=== PATIENT | male | born 1935 | race Caucasian/White ===

== ENCOUNTER 2016-12-24 12:57 | Emergency (ER) | payer OTHER, MEDICARE ==
[2016-12-24 13:29] VITALS: BP 135/87
[2016-12-24] MEDS ORDERED: Lidocaine 1% with EPINEPHrine 1:100,000 50 ML MDV INFILT ONE (13:52)
--- NOTE | 2016-12-24 13:56 | EDM.PDOC ---
[id number]: PASSED OUT FELL Time Seen by Provider: 12/24/16 13:35 Source of Information: Reports: Patient, Family History Limitations: Reports: No Limitations - History of Present Illness INITIAL COMMENTS - FREE TEXT/NARRATIVE: 81-year-old male with a history of sudden syncope had another episode today while standing and working at [employer]. He felt lightheaded and woozy and reached out to steady himself but then passed out. He had diarrhea yesterday but was feeling fine this morning. He had no palpitations or shortness of breath. The next thing he knew there were people standing around him and he had a cut on his head. He now feels fine. He refused an ambulance. Onset: Sudden Location: Reports: Head Severity: Mild Associated Symptoms: Reports: Other (Had been feeling fine up until the syncopal episode.) - Related Data Allergies Allergy/AdvReac Type Severity Reaction Status Date / Time No Known Allergies Allergy Verified 12/24/16 13:33 Home Meds: Home Meds Aspirin 325 mg PO DAILY 12/24/16 [History] Multivitamin [Multi-Vitamin Daily] 1 each PO DAILY 12/24/16 [History] [place]-3S/DHA/Epa/Fish Oil [[place]-3 Fish Oil 1,000 mg Sfgl] 1 each PO DAILY 12/24 [History] Terazosin HCl [Terazosin] 10 mg PO BEDTIME 12/24/16 [History] levETIRAcetam [Levetiracetam] 500 mg PO BID 12/24/16 [History] Past Medical History HEENT History: Reports: Cataract, Hard of Hearing Other HEENT History: hearing aids Other Respiratory History: A 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 Musculoskeletal History: Reports: Fracture Neurological History: Reports: Seizure Oncologic (Cancer) History: Reports: Prostate - Infectious Disease History Infectious Disease History: Reports: Chicken Pox, Mumps - Past Surgical History HEENT Surgical History: Reports: Cataract Surgery Other HEENT Surgeries/Procedures: Left eye Musculoskeletal Surgical History: Reports: Arthroscopic Knee Social & Family History - Tobacco Use Smoking Status *Q: Never Smoker - Caffeine Use Caffeine Use: Reports: Coffee - Recreational Drug Use Recreational Drug Use: No ED ROS GENERAL - Review of Systems Review Of Systems: See Below Constitutional: Denies: Fever, Chills Respiratory: Denies: Shortness of Breath Cardiovascular: Denies: Chest Pain, Palpitations GI/Abdominal: Reports: Diarrhea (Yesterday) Musculoskeletal: Reports: No Symptoms Neurological: Denies: Headache ED EXAM, GENERAL - Physical Exam Exam: See Below Exam Limited By: No Limitations General Appearance: Alert, No Apparent Distress Eye Exam: Bilateral Eye: Normal Inspection Ears: Other (Hearing aids bilaterally) Head: Other (Patient has a stellate laceration on the left occipital scalp, total measurement is 4 cm) Respiratory/Chest: No Respiratory Distress Cardiovascular: Regular Rate, Rhythm GI/Abdominal: Non-Tender Extremities: No: Pedal Edema Neurological: Alert, Oriented Psychiatric: Normal Affect, Normal Mood Course - Vital Signs Last Recorded V/S: Last Vital Signs Temp 97.7 F 12/24/16 13:32 Pulse 58 L 12/24/16 13:32 Resp 16 12/24/16 13:32 BP 135/87 12/24/16 13:32 Pulse Ox 93 L 12/24/16 13:32 - Orders/Labs/Meds Orders: Active Orders 24 hr Category Date Time Status Vaccines to be Administered [RC] PER UNIT ROUTINE Care 12/24/16 14:21 Active Meds: Medications Discontinued Medications Generic Name Dose Route Start Last Admin Trade Name Yoana PRN Reason Stop Dose Admin Bacitracin 1 dose 12/24/16 14:25 12/24/16 14:31 Bacitracin Oint 1 Gm TOP 12/24/16 14:26 1 dose ONETIME ONE Administration Diphtheria/Tetanus/Acell Pertussis 0.5 ml 12/24/16 14:21 12/24/16 14:27 Adacel IM 12/24/16 14:22 0.5 ml .ONCE ONE Administration Lidocaine/Epinephrine 30 ml 12/24/16 13:52 12/24/16 14:00 Xylocaine 1% With Epinephrine 1:100,000 INFILT 12/24/16 13:53 2 ml ONETIME ONE Administration - Re-Assessments/Exams Free Text/Narrative Re-Assessment/Exam: 12/24/16 14:20 Lidocaine with epinephrine was infiltrated into the laceration and 7 4-0 Ethilon sutures are used to close. The edges approximated well. Patient then ambulated and felt no other sore areas or symptoms. He was given tetanus, topical bacitracin and the sutures can be removed in 8 days. Departure - Departure Time of Disposition: 15:01 Disposition: Home, Self-Care 01 Condition: good Clinical Impression: Syncope, vasovagal Laceration of scalp Qualifiers: Encounter type: initial encounter Qualified Code(s): S01.01XA - Laceration without foreign body of scalp, initial encounter Instructions: Near-Syncope, [id number], VIS, Diphtheria, Tetanus, and Pertussis (DTaP) - CDC, Laceration Care, Adult, [id number] Referrals: Alphonso Mays MD [Primary Care Provider] - Forms: ED Department Discharge Care Plan Goals: Stay home and rest for the next 48 hours, increasing your activity as tolerated. Keep wound clean and covered while healing, sutures can be removed in 8 days. Recheck sooner if concerns of infection or not healing satisfactorily. - My Orders Last 24 Hours: My Active Orders 12/24/16 14:21 Vaccines to be Administered [RC] PER UNIT ROUTINE - Assessment/Plan Last 24 Hours: My Active Orders 12/24/16 14:21 Vaccines to be Administered [RC] PER UNIT ROUTINE
[2016-12-24] MEDS ORDERED: Diphtheria,Pertussis(Acell),Tetanus Vaccine 0.5 ML SDV IM ONE (14:21)
[2016-12-24] MEDS ORDERED: Bacitracin Oint 1 GM U/D Packet TOP ONE (14:25)
== END 2016-12-24 15:01 | disposition home or self-care (01) ==
LOC: JP.ED 12:57
DX: R55 Syncope and collapse (principal); S01.01XA Laceration without foreign body of scalp, initial encounter; Z85.46 Personal history of malignant neoplasm of prostate; Z98.49 Cataract extraction status, unspecified eye; Z98.890 Other specified postprocedural states; Z79.82 Long term (current) use of aspirin; Z79.899 Other long term (current) drug therapy
CPT/HCPCS: 12002; 90471; 90715; 99282-25; 99284-25

== ENCOUNTER 2017-01-23 16:31 | Emergency (ER) | payer OTHER, MEDICARE ==
[2017-01-23] MEDS ORDERED: Sodium Chloride 0.9% 10 ML Syringe FLUSH PRN (16:40)
[2017-01-23] MEDS ORDERED: Adenosine 6 MG/2 ML SDV IVPUSH ONE (16:42)
[2017-01-23] MEDS ORDERED: Sodium Chloride 0.9% 1,000 ML IV SCH (16:45)
[2017-01-23] MEDS ORDERED: Adenosine 6 MG/2 ML SDV ONE (16:59)
--- NOTE | 2017-01-23 17:58 | EDM.PDOC ---
ED HPI GENERAL MEDICAL PROBLEM - General Chief Complaint: Cardiovascular Problem Stated Complaint: HEART Time Seen by Provider: 01/23/17 17:12 Source of Information: Reports: Patient, Family, RN Notes Reviewed History Limitations: Reports: No Limitations - History of Present Illness INITIAL COMMENTS - FREE TEXT/NARRATIVE: 81-year-old gentleman presents emergency department day complaint of chest pressure and palpitations, he states it started earlier today approximately 5 hours prior to presentation to the ED he describes it more as a heartburn feeling did not interfere with his work he was able to complete his shift at [facility] [employer]. He denies any shortness of breath no nausea vomiting no diaphoresis he has no cardiac history no diabetes no hypertension no use of tobacco products - Related Data Allergies Allergy/AdvReac Type Severity Reaction Status Date / Time No Known Allergies Allergy Verified 01/23/17 17:06 Home Meds: Home Meds Multivitamin [Multi-Vitamin Daily] 1 each PO DAILY 12/24/16 [History] [place]-3S/DHA/Epa/Fish Oil [[place]-3 Fish Oil 1,000 mg Sfgl] 1 each PO DAILY 12/24 [History] Terazosin HCl [Terazosin] 10 mg PO BEDTIME 12/24/16 [History] levETIRAcetam [Levetiracetam] 500 mg PO BID 12/24/16 [History] Aspirin 1 tab PO DAILY 01/23/17 [History] Metoprolol Tartrate 12.5 mg PO BID #30 tablet 01/23/17 [Rx] Past Medical History HEENT History: Reports: Cataract, Hard of Hearing Other HEENT History: hearing aids Other Respiratory History: A 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 Musculoskeletal History: Reports: Fracture Neurological History: Reports: Seizure Oncologic (Cancer) History: Reports: Prostate - Infectious Disease History Infectious Disease History: Reports: Chicken Pox, Mumps - Past Surgical History HEENT Surgical History: Reports: Cataract Surgery Other HEENT Surgeries/Procedures: Left eye Musculoskeletal Surgical History: Reports: Arthroscopic Knee Social & Family History - Family History Cardiac: Reports: Heart Failure (Sister), Other (See Below) (Sister history of SVT status post ablation) - Tobacco Use Smoking Status *Q: Never Smoker - Caffeine Use Caffeine Use: Reports: Coffee - Recreational Drug Use Recreational Drug Use: No ED ROS GENERAL - Review of Systems Review Of Systems: See Below Constitutional: Reports: No Symptoms HEENT: Reports: No Symptoms Respiratory: Reports: No Symptoms Cardiovascular: Reports: Chest Pain GI/Abdominal: Reports: No Symptoms : Reports: No Symptoms ED EXAM, GENERAL - Physical Exam Exam: See Below Free Text/Narrative:: Initial presentation showed heart rate of around 170, airway was open patent and clear cardiovascular demonstrates a tachycardic rhythm S1 and S2 and lungs were clear to auscultation, he was moved to the trauma bay at which time 2 IVs were placed attempted carotid massage which was unsuccessful. Next attempted a Valsalva maneuver through a straw which provided a brief heart rate is around 60 but then returned to the 170s. He was given 6 mg of adenosine which converted him to a sinus rhythm in the 70s at the time of conversion became asymptomatic Exam Limited By: No Limitations General Appearance: Alert, WD/WN, No Apparent Distress Head: Atraumatic, Normocephalic Neck: Normal Inspection, Supple, Non-Tender, Full Range of Motion Respiratory/Chest: No Respiratory Distress, Lungs Clear, Normal Breath Sounds, No Accessory Muscle Use Cardiovascular: Regular Rate, Rhythm, No Murmur Course - Vital Signs Last Recorded V/S: Last Vital Signs Temp 98.8 F 01/23/17 17:00 Pulse 69 01/23/17 17:25 Resp 20 01/23/17 17:00 BP 121/78 01/23/17 17:25 Pulse Ox 92 L 01/23/17 17:25 - Orders/Labs/Meds Orders: Active Orders 24 hr Category Date Time Status EKG Documentation Completion [RC] ASDIRECTED Care 01/23/17 16:41 Active Chest 1V Frontal [CR] Stat Exams 01/23/17 16:41 Taken Sodium Chloride 0.9% [Normal Saline] 1,000 ml Med 01/23/17 16:45 Active IV ASDIRECTED Sodium Chloride 0.9% [Saline Flush] Med 01/23/17 16:40 Active 10 ml FLUSH ASDIRECTED PRN Saline Lock Insert [OM.PC] Routine Oth 01/23/17 16:40 Ordered EKG 12 Lead [EK] Routine Ther 01/23/17 16:40 Ordered Medication Orders Sodium Chloride (Normal Saline) 1,000 mls @ 250 mls/hr IV ASDIRECTED DANIELA Last Admin: 01/23/17 16:50 Dose: 250 mls/hr Sodium Chloride (Saline Flush) 10 ml FLUSH ASDIRECTED PRN PRN Reason: Keep Vein Open Last Admin: 01/23/17 17:17 Dose: 10 ml Labs: Laboratory Tests 01/23/17 01/23/17 01/23/17 Range/Units 16:54 16:54 17:41 WBC 10.7 (4.5-11.0) K/uL RBC 4.32 (4.30-5.90) M/uL Hgb 13.4 (12.0-15.0) g/dL Hct 41.2 (40.0-54.0) % MCV 95 (80-98) fL MCH 31 (27-31) pg MCHC 33 (32-36) % Plt Count 298 (150-400) K/uL Neut % (Auto) 61 (36-66) % Lymph % (Auto) 21 L (24-44) % [place] % (Auto) 13 H (2-6) % Eos % (Auto) 4 (2-4) % Baso % (Auto) 0 (0-1) % Sodium 139 L (140-148) mmol/L Potassium 4.3 (3.6-5.2) mmol/L Chloride 104 (100-108) mmol/L Carbon Dioxide 25 (21-32) mmol/L Anion Gap 14.3 H (5.0-14.0) mmol/L BUN 19 H (7-18) mg/dL Creatinine 1.2 (0.8-1.3) mg/dL Est Cr Clr Drug Dosing 48.30 mL/min Estimated GFR (MDRD) 58 L (>60) Glucose 108 H (74-106) mg/dL Calcium 8.8 (8.5-10.1) mg/dL Total Bilirubin 0.2 (0.2-1.0) mg/dL AST 20 (15-37) U/L ALT 7 L (12-78) U/L Alkaline Phosphatase 123 H (46-116) U/L Troponin I < 0.017 (0.000-0.056) ng/mL Total Protein 7.3 (6.4-8.2) g/dL Albumin 3.4 (3.4-5.0) g/dL Globulin 3.9 H (2.3-3.5) g/dL Albumin/Globulin Ratio 0.9 L (1.2-2.2) TSH, Ultra Sensitive 7.325 H (0.358-3.740) uIU/mL Meds: Medications Generic Name Dose Route Start Last Admin Trade Name Freq PRN Reason Stop Dose Admin Sodium Chloride 1,000 mls @ 250 mls/hr 01/23/17 16:45 01/23/17 16:50 Normal Saline IV 250 mls/hr ASDIRECTED DANIELA Administration Sodium Chloride 10 ml 01/23/17 16:40 01/23/17 17:17 Saline Flush FLUSH 10 ml ASDIRECTED PRN Administration Keep Vein Open Discontinued Medications Generic Name Dose Route Start Last Admin Trade Name Freq PRN Reason Stop Dose Admin Adenosine 6 mg 01/23/17 16:42 01/23/17 16:51 Adenocard IVPUSH 01/23/17 16:43 6 mg NOW ONE Administration Adenosine Confirm 01/23/17 16:59 01/23/17 17:18 Adenocard Administered 01/23/17 17:00 Not Given Dose 12 mg .ROUTE .STK-MED ONE Departure - Departure Time of Disposition: 18:20 Disposition: Home, Self-Care 01 Condition: Good Clinical Impression: Paroxysmal SVT (supraventricular tachycardia) Prescriptions: Metoprolol Tartrate 12.5 mg PO BID #30 tablet Forms: ED Department Discharge Additional Instructions: Start the new medication 1 tablet 2 times a day, please follow-up with your primary care provider next week for further evaluation which may include an echocardiogram, a stress test and possible consultation with cardiology, please call return to the emergency department with worsening of symptoms - Assessment/Plan Plan: Assessment Acuity = acute Site and laterality = paroxysmal supraventricular tachycardia complicating the patient history of prostate cancer status post radiation therapy Etiology = unclear etiology Manifestations = chest pain now resolved Location of injury = Home Lab values = CBC, CMP, troponin within normal limits thyroid TSH elevated at 7.3 consistent with hypothyroidism, chest x-ray I did review films myself I cannot appreciate any acute process, the official read from radiology is pending , initial EKG shows supraventricular tachycardia rate of 170 2 repeat EKG shows first-degree block otherwise no ST changes or elevations sinus rhythm Plan I did review lab work EKG and chest x-ray results family after conversion he has remained asymptomatic his heart score is 3, plan is to start metoprolol 12.5 mg twice a day he is going to follow-up with his primary care provider for further evaluation and a workup which would include echocardiogram and stress test with probable consultation with cardiology. Patient was in agreement with the plan all questions were answered, they were instructed to return to the emergency department or call for worsening symptoms. This note was dictated using [employer] voice recognition software please call with any questions.
[2017-01-23 18:44] VITALS: BP 117/75
--- NOTE | 2017-01-26 09:23 | CR ---
Cardiomegaly. Lordotic view. No focal consolidation.
== END 2017-01-23 18:49 | disposition home or self-care (01) ==
LOC: JP.ED 16:31
DX: I47.1 Supraventricular tachycardia (principal); Z98.49 Cataract extraction status, unspecified eye; Z98.890 Other specified postprocedural states; Z79.82 Long term (current) use of aspirin
CPT/HCPCS: 36415; 71010; 80053; 84443; 84484; 85025; 93005; 96361; 96374; 99285; J0153; J7040; J7050; 93010; 99284

== ENCOUNTER 2017-02-10 08:06 | Emergency (ER) | payer OTHER, MEDICARE ==
[2017-02-10 08:19] VITALS: BP 138/66
--- NOTE | 2017-02-10 09:20 | EDM.PDOC ---
[id number] FELL AT HOME Time Seen by Provider: 02/10/17 08:30 Source of Information: Reports: Patient, Family History Limitations: Reports: Physical Impairment (Patient is hard of hearing.) - History of Present Illness INITIAL COMMENTS - FREE TEXT/NARRATIVE: Patient brought in by his family after a syncopal episode at home. This is a chronic recurring problem for the patient, it occurred while standing after eating a small breakfast. He started feeling unsteady and lightheaded and tried to go back to the table to sit down but fainted. He hit his right shoulder which is sore but he is moving it fairly freely. He has no head injury. He was seen 1 month ago with an episode of SVT which he needed adenosine for cardioversion. He did not feel palpitations or tachycardia prior to this episode. He has no chest pain or shortness of breath, he has some mild neck soreness when he wakes in the morning since his fall 2 months ago but no other persistent complaints, he is to follow up with his primary care physician after another week of metoprolol therapy. Onset: Sudden Location: Reports: Upper Extremity, Right Severity: Mild Associated Symptoms: Reports: Syncope. Denies: Chest Pain, Cough, Fever/Chills , Headaches, Shortness of Breath Right Shoulder Pain Score (Numeric/FACES): 2 - Related Data Allergies Allergy/AdvReac Type Severity Reaction Status Date / Time No Known Allergies Allergy Verified 02/10/17 08:30 Home Meds: Home Meds Multivitamin [Multi-Vitamin Daily] 1 each PO DAILY 12/24/16 [History] [place]-3S/DHA/Epa/Fish Oil [[place]-3 Fish Oil 1,000 mg Sfgl] 1 each PO DAILY 12/24 [History] Terazosin HCl [Terazosin] 10 mg PO BEDTIME 12/24/16 [History] levETIRAcetam [Levetiracetam] 500 mg PO BID 12/24/16 [History] Aspirin 1 tab PO DAILY 01/23/17 [History] Metoprolol Tartrate 12.5 mg PO BID #30 tablet 01/23/17 [Rx] Past Medical History HEENT History: Reports: Cataract, Hard of Hearing Other HEENT History: hearing aids Cardiovascular History: Reports: Other (See Below) Other Cardiovascular History: tachycardia Other Respiratory History: A 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 Musculoskeletal History: Reports: Fracture Neurological History: Reports: Seizure Oncologic (Cancer) History: Reports: Prostate - Infectious Disease History Infectious Disease History: Reports: Chicken Pox, Mumps - Past Surgical History HEENT Surgical History: Reports: Cataract Surgery Other HEENT Surgeries/Procedures: Left eye Musculoskeletal Surgical History: Reports: Arthroscopic Knee Social & Family History - Family History Cardiac: Reports: Heart Failure, Other (See Below) - Tobacco Use Smoking Status *Q: Never Smoker - Caffeine Use Caffeine Use: Reports: Coffee - Recreational Drug Use Recreational Drug Use: No ED ROS GENERAL - Review of Systems Review Of Systems: See Below Constitutional: Denies: Fever, Chills HEENT: Reports: No Symptoms Respiratory: Denies: Shortness of Breath, Cough Cardiovascular: Denies: Chest Pain GI/Abdominal: Denies: Abdominal Pain, Nausea, Vomiting Musculoskeletal: Reports: Neck Pain (For the last 4-6 weeks especially in the morning. He also has some right shoulder soreness after his fall) Skin: Reports: Bruising (Very small bruise on the lateral right elbow, patient was unaware of the injury) Neurological: Reports: Dizziness, Syncope, Other (Very hard of hearing). Denies : Headache Psychiatric: Reports: No Symptoms - Physical Exam Exam: See Below Exam Limited By: No Limitations General Appearance: Alert, No Apparent Distress Eye Exam: Bilateral Eye: EOMI, Other (No nystagmus) Head Exam: Atraumatic Neck: Supple Respiratory/Chest: No Respiratory Distress, Lungs Clear Cardiovascular: Regular Rate, Rhythm. No: Extra Beats GI/Abdominal: Soft Neuro Exam (Abbreviated): Alert, Oriented, No Motor/Sensory Deficits Extremities: Normal Inspection. No: Pedal Edema Psychiatric: Normal Affect, Normal Mood Skin Exam: Warm, Dry Course - Vital Signs Last Recorded V/S: Last Vital Signs Temp 95.9 F 02/10/17 08:28 Pulse 58 L 02/10/17 08:28 Resp 16 02/10/17 08:28 BP 138/66 02/10/17 08:28 Pulse Ox 95 02/10/17 08:28 - Orders/Labs/Meds Orders: Active Orders 24 hr Category Date Time Status Shoulder Comp Rt [CR] Stat Exams 02/10/17 08:59 Ordered - Re-Assessments/Exams Free Text/Narrative Re-Assessment/Exam: 02/10/17 09:19 Patient was placed on a marine mammal trainer and observed for 30 minutes, continued to be in a normal sinus rhythm with mild bradycardia at times. Blood pressure was normal. Right shoulder x-ray was obtained which was negative. We had a long discussion on his symptoms of syncope with the intermixed episode of SVT. I'm going to recommend he continue his medications but we will also place him on a 48 hour Holter monitor and I emphasized the importance of follow-up with his primary provider to discuss a stress test and eventual cardiology consultation. Departure - Departure Time of Disposition: 09:46 Disposition: Home, Self-Care 01 Condition: Good Clinical Impression: Syncope, vasovagal Contusion of right shoulder region Qualifiers: Encounter type: initial encounter Qualified Code(s): S40.011A - Contusion of right shoulder, initial encounter - Discharge Information Instructions: Vasovagal Syncope, Adult Referrals: Alphonso Mays MD [Primary Care Provider] - Forms: ED Department Discharge Care Plan Goals: Increase activity as tolerated, no medication changes at this time and wear Holter monitor for 2 days as instructed. Return anytime if symptoms recur or you have other concerns. Recheck in 1-[address] Mays to discuss Holter monitor results, scheduling a stress test any further consultations which may be necessary. - My Orders Last 24 Hours: My Active Orders 02/10/17 08:59 Shoulder Comp Rt [CR] Stat - Assessment/Plan Last 24 Hours: My Active Orders 02/10/17 08:59 Shoulder Comp Rt [CR] Stat
--- NOTE | 2017-02-12 13:16 | CR ---
Shoulder Comp Rt HISTORY: Pain COMPARISON: None FINDINGS: No acute fracture or dislocation. No bony destructive process.
== END 2017-02-10 09:46 | disposition home or self-care (01) ==
LOC: JP.ED 08:06
DX: R55 Syncope and collapse (principal); S40.011A Contusion of right shoulder, initial encounter; Z79.899 Other long term (current) drug therapy; Z98.49 Cataract extraction status, unspecified eye; Z79.82 Long term (current) use of aspirin; Z85.46 Personal history of malignant neoplasm of prostate; Z90.49 Acquired absence of other specified parts of digestive tract; W19.XXXA Unspecified fall, initial encounter; Y92.009 Unspecified place in unspecified non-institutional (private) residence as the place of occurrence of the external cause
CPT/HCPCS: 73030-26-RT; 73030-RT; 93225; 93226; 99284

== ENCOUNTER 2017-02-26 10:07 | Emergency (ER) | payer OTHER, MEDICARE ==
[2017-02-26] MEDS ORDERED: Adenosine 6 MG/2 ML SDV IVPUSH ONE (10:28)
[2017-02-26] MEDS ORDERED: Sodium Chloride 0.9% 1,000 ML IV SCH (10:30)
[2017-02-26] MEDS ORDERED: Metoprolol Tartrate 25 MG Tab PO ONE (10:37)
--- NOTE | 2017-02-26 11:16 | EDM.PDOC ---
ED HPI GENERAL MEDICAL PROBLEM - General Chief Complaint: Chest Pain Stated Complaint: WEAK/CHEST PRESSURE Time Seen by Provider: 02/26/17 11:17 Source of Information: Reports: Patient, Family History Limitations: Reports: No Limitations - History of Present Illness INITIAL COMMENTS - FREE TEXT/NARRATIVE: pt arrived with a heart rate 190. He was hypotensive. He was experiencing some chest tightness. He had been lite headed and last thursday when he saw Dr Mays his metaprorol was stopped. Romain states that when he got up this am he noted the rapid rate shortly after that. He then developed the tightness in his chest. Onset: Today Duration: Hour(s): Location: Reports: Chest Chest Pain Score (Numeric/FACES): 4 - Related Data Allergies Allergy/AdvReac Type Severity Reaction Status Date / Time No Known Allergies Allergy Verified 02/26/17 10:38 Home Meds: Home Meds Multivitamin [Multi-Vitamin Daily] 1 each PO DAILY 12/24/16 [History] [place]-3S/DHA/Epa/Fish Oil [[place]-3 Fish Oil 1,000 mg Sfgl] 1 each PO DAILY 12/24 [History] Terazosin HCl [Terazosin] 10 mg PO BEDTIME 12/24/16 [History] levETIRAcetam [Levetiracetam] 500 mg PO BID 12/24/16 [History] Aspirin 1 tab PO DAILY 01/23/17 [History] Past Medical History HEENT History: Reports: Cataract, Hard of Hearing Other HEENT History: hearing aids Cardiovascular History: Reports: Other (See Below) Other Cardiovascular History: tachycardia Other Respiratory History: A 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 Musculoskeletal History: Reports: Fracture Neurological History: Reports: Seizure Oncologic (Cancer) History: Reports: Prostate - Infectious Disease History Infectious Disease History: Reports: Chicken Pox, Mumps - Past Surgical History HEENT Surgical History: Reports: Cataract Surgery Other HEENT Surgeries/Procedures: Left eye Musculoskeletal Surgical History: Reports: Arthroscopic Knee Social & Family History - Family History Cardiac: Reports: Heart Failure, Other (See Below) - Tobacco Use Smoking Status *Q: Never Smoker - Caffeine Use Caffeine Use: Reports: Coffee - Recreational Drug Use Recreational Drug Use: No ED ROS GENERAL - Review of Systems Review Of Systems: See Below Constitutional: Reports: No Symptoms HEENT: Reports: No Symptoms Respiratory: Reports: No Symptoms Cardiovascular: Reports: Chest Pain ( started after the rapid heart rate started. ), Palpitations, Other Endocrine: Reports: No Symptoms GI/Abdominal: Reports: No Symptoms : Reports: No Symptoms ED EXAM, GENERAL - Physical Exam Exam: See Below Free Text/Narrative:: pt arrived having some chest tightness and feeling that his heart is racing. He states the chest tightness started after the rapid rate. Exam Limited By: No Limitations General Appearance: Alert, Moderate Distress Ears: Normal TMs Nose: Normal Inspection Throat/Mouth: Normal Inspection Head: Atraumatic Neck: Normal Inspection Respiratory/Chest: No Respiratory Distress Cardiovascular: Regular Rate, Rhythm, Tachycardia, Other ( rate is 180) GI/Abdominal: Soft (Male) Exam: Deferred Rectal (Males) Exam: Deferred Back Exam: Normal Inspection Extremities: Normal Inspection Neurological: Alert, Oriented, Normal Cognition Course - Vital Signs Last Recorded V/S: Last Vital Signs Temp 36.7 C 02/26/17 12:25 Pulse 62 02/26/17 12:25 Resp 16 02/26/17 12:25 BP 112/74 02/26/17 12:25 Pulse Ox 96 02/26/17 12:25 - Orders/Labs/Meds Orders: Active Orders 24 hr Category Date Time Status Sodium Chloride 0.9% [Normal Saline] 1,000 ml Med 02/26/17 10:30 Active IV ASDIRECTED Medication Orders Sodium Chloride (Normal Saline) 1,000 mls @ 250 mls/hr IV ASDIRECTED DANIELA Last Admin: 02/26/17 10:44 Dose: 250 mls/hr Labs: Laboratory Tests 02/26/17 02/26/17 02/26/17 Range/Units 10:27 10:40 10:40 WBC 10.8 (4.5-11.0) K/uL RBC 4.53 (4.30-5.90) M/uL Hgb 14.1 (12.0-15.0) g/dL Hct 43.1 (40.0-54.0) % MCV 95 (80-98) fL MCH 31 (27-31) pg MCHC 33 (32-36) % Plt Count 296 (150-400) K/uL Neut % (Auto) 66 (36-66) % Lymph % (Auto) 18 L (24-44) % [place] % (Auto) 13 H (2-6) % Eos % (Auto) 3 (2-4) % Baso % (Auto) 1 (0-1) % Sodium 139 L (140-148) mmol/L Potassium 4.1 (3.6-5.2) mmol/L Chloride 104 (100-108) mmol/L Carbon Dioxide 27 (21-32) mmol/L Anion Gap 12.1 (5.0-14.0) mmol/L BUN 17 (7-18) mg/dL Creatinine 1.1 (0.8-1.3) mg/dL Est Cr Clr Drug Dosing TNP Estimated GFR (MDRD) > 60 (>60) Glucose 121 H (74-106) mg/dL Calcium 8.6 (8.5-10.1) mg/dL Total Bilirubin 0.3 (0.2-1.0) mg/dL AST 20 (15-37) U/L ALT 21 D (12-78) U/L Alkaline Phosphatase 115 (46-116) U/L Creatine Kinase 65 (39-308) U/L Troponin I < 0.017 (0.000-0.056) ng/mL Total Protein 7.6 (6.4-8.2) g/dL Albumin 3.3 L (3.4-5.0) g/dL Globulin 4.3 H (2.3-3.5) g/dL Albumin/Globulin Ratio 0.8 L (1.2-2.2) Urine Color Urine Appearance Urine pH (4.5-8.0) Ur Specific [place] (1.008-1.030) Urine Protein (NEGATIVE) mg/dL Urine Glucose (UA) (NEGATIVE) mg/dL Urine Ketones (NEGATIVE) mg/dL Urine Occult Blood (NEGATIVE) Urine Nitrite (NEGAITVE) Urine Bilirubin (NEGATIVE) Urine Urobilinogen (NORMAL) mg/dL Ur Leukocyte Esterase (NEGATIVE) Urine RBC (0-5) Urine WBC (0-5) Ur Epithelial Cells Amorphous Sediment Urine Bacteria Urine Mucus 02/26/17 Range/Units 11:41 WBC (4.5-11.0) K/uL RBC (4.30-5.90) M/uL Hgb (12.0-15.0) g/dL Hct (40.0-54.0) % MCV (80-98) fL MCH (27-31) pg MCHC (32-36) % Plt Count (150-400) K/uL Neut % (Auto) (36-66) % Lymph % (Auto) (24-44) % [place] % (Auto) (2-6) % Eos % (Auto) (2-4) % Baso % (Auto) (0-1) % Sodium (140-148) mmol/L Potassium (3.6-5.2) mmol/L Chloride (100-108) mmol/L Carbon Dioxide (21-32) mmol/L Anion Gap (5.0-14.0) mmol/L BUN (7-18) mg/dL Creatinine (0.8-1.3) mg/dL Est Cr Clr Drug Dosing Estimated GFR (MDRD) (>60) Glucose (74-106) mg/dL Calcium (8.5-10.1) mg/dL Total Bilirubin (0.2-1.0) mg/dL AST (15-37) U/L ALT (12-78) U/L Alkaline Phosphatase (46-116) U/L Creatine Kinase (39-308) U/L Troponin I (0.000-0.056) ng/mL Total Protein (6.4-8.2) g/dL Albumin (3.4-5.0) g/dL Globulin (2.3-3.5) g/dL Albumin/Globulin Ratio (1.2-2.2) Urine Color Yellow Urine Appearance Clear Urine pH 6.0 (4.5-8.0) Ur Specific [place] 1.010 (1.008-1.030) Urine Protein Negative (NEGATIVE) mg/dL Urine Glucose (UA) Normal (NEGATIVE) mg/dL Urine Ketones Negative (NEGATIVE) mg/dL Urine Occult Blood Negative (NEGATIVE) Urine Nitrite Negative (NEGAITVE) Urine Bilirubin Negative (NEGATIVE) Urine Urobilinogen Normal (NORMAL) mg/dL Ur Leukocyte Esterase Negative (NEGATIVE) Urine RBC 0-5 (0-5) Urine WBC Not seen (0-5) Ur Epithelial Cells Not seen Amorphous Sediment Not seen Urine Bacteria Not seen Urine Mucus Not seen Meds: Medications Generic Name Dose Route Start Last Admin Trade Name Freq PRN Reason Stop Dose Admin Sodium Chloride 1,000 mls @ 250 mls/hr 02/26/17 10:30 02/26/17 10:44 Normal Saline IV 250 mls/hr ASDIRECTED DANIELA Administration Discontinued Medications Generic Name Dose Route Start Last Admin Trade Name Yoana PRN Reason Stop Dose Admin Adenosine 6 mg 02/26/17 10:28 02/26/17 10:31 Adenocard IVPUSH 02/26/17 10:29 6 mg NOW ONE Administration Metoprolol Tartrate 12.5 mg 02/26/17 10:37 02/26/17 11:52 Lopressor PO 02/26/17 10:38 12.5 mg ONETIME ONE Administration - Re-Assessments/Exams Free Text/Narrative Re-Assessment/Exam: 02/26/17 14:04 pt was converted to a normal sinus rhythm with 6 mg of adenogard. He was then given metoprol 12.5 mg to hold the rhythm. he has remained stable. Pt was stopped on the metorprol because he fell and hit his shoulder. He will be put back on it but in a lower dose during the day. Departure - Departure Time of Disposition: 14:06 Disposition: Home, Self-Care 01 Condition: Fair Clinical Impression: PAT (paroxysmal atrial tachycardia) Forms: ED Department Discharge Care Plan Goals: rtc for a echo cardigram, metorprol -- 1/2 tab qam and 12.5 mg at bedtime. appt with Dr Mays in 4-5 days. - My Orders Last 24 Hours: My Active Orders 02/26/17 10:30 Sodium Chloride 0.9% [Normal Saline] 1,000 ml IV ASDIRECTED - Assessment/Plan Last 24 Hours: My Active Orders 02/26/17 10:30 Sodium Chloride 0.9% [Normal Saline] 1,000 ml IV ASDIRECTED
--- NOTE | 2017-02-26 11:38 | CR ---
Heart size upper limits of normal. No focal consolidation. Tiny metallic density remains right midlu ng zone.
[2017-02-26 14:13] VITALS: BP 108/68
== END 2017-02-26 14:35 | disposition home or self-care (01) ==
LOC: JP.ED 10:07
DX: R00.0 Tachycardia, unspecified (principal); I47.1 Supraventricular tachycardia; Z98.49 Cataract extraction status, unspecified eye; Z98.890 Other specified postprocedural states; Z79.82 Long term (current) use of aspirin; Z79.899 Other long term (current) drug therapy
CPT/HCPCS: 36415; 71010; 80053; 81001; 82550; 84484; 85025; 93005; 93010; 93306; 96361; 96374; 99284; 99285; A9270; J0153; J7040

== ENCOUNTER 2017-08-31 07:30 | Emergency (ER) | payer OTHER, MEDICARE ==
[2017-08-31] MEDS ORDERED: Lidocaine 1% 20 ML MDV INJECT ONE (08:03)
[2017-08-31] MEDS ORDERED: Bacitracin Oint 1 GM U/D Packet TOP ONE (08:04)
--- NOTE | 2017-08-31 08:10 | EDM.PDOC ---
ED HPI GENERAL MEDICAL PROBLEM - General Chief Complaint: General Stated Complaint: FAINTING Time Seen by Provider: 08/31/17 08:04 Source of Information: Reports: Patient, EMS History Limitations: Reports: No Limitations - History of Present Illness INITIAL COMMENTS - FREE TEXT/NARRATIVE: Pt was at [facility] this am at work and he suddenly passed out. He was standing talking to the dormitory supervisor and he felt liteheaded and he did not feel like hes heart was racing. He just suddenly passed out. Onset: Today Duration: Minutes: Location: Reports: Head, Other ( Pt has a large laceration on the back of his head. ) Associated Symptoms: Reports: Syncope Head Pain Score (Numeric/FACES): 4 - Related Data Allergies Allergy/AdvReac Type Severity Reaction Status Date / Time No Known Allergies Allergy Verified 08/31/17 07:38 Home Meds: Home Meds Multivitamin [Multi-Vitamin Daily] 1 each PO DAILY 12/24/16 [History] [place]-3S/DHA/Epa/Fish Oil [[place]-3 Fish Oil 1,000 mg Sfgl] 1 each PO DAILY 12/24 [History] Terazosin HCl [Terazosin] 10 mg PO BEDTIME 12/24/16 [History] levETIRAcetam [Levetiracetam] 500 mg PO BID 12/24/16 [History] Aspirin 1 tab PO DAILY 01/23/17 [History] Ascorbic Acid [Vitamin C with Silvia Hips] 1 tab PO DAILY 08/31/17 [History] Metoprolol Tartrate [Metoprolol Tartrate] 0.25 tab PO DAILY 08/31/17 [History] Metoprolol Tartrate [Metoprolol Tartrate] 0.5 tab PO BEDTIME 08/31/17 [History] Past Medical History HEENT History: Reports: Cataract, Hard of Hearing Other HEENT History: hearing aids Cardiovascular History: Reports: Other (See Below) Other Cardiovascular History: tachycardia Other Respiratory History: A 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 Musculoskeletal History: Reports: Fracture Neurological History: Reports: Seizure Oncologic (Cancer) History: Reports: Prostate - Infectious Disease History Infectious Disease History: Reports: Chicken Pox, Mumps - Past Surgical History HEENT Surgical History: Reports: Cataract Surgery Other HEENT Surgeries/Procedures: Left eye Musculoskeletal Surgical History: Reports: Arthroscopic Knee Social & Family History - Family History Cardiac: Reports: Heart Failure, Other (See Below) - Tobacco Use Smoking Status *Q: Never Smoker - Caffeine Use Caffeine Use: Reports: Coffee - Recreational Drug Use Recreational Drug Use: No ED ROS GENERAL - Review of Systems Review Of Systems: See Below Constitutional: Reports: No Symptoms HEENT: Reports: No Symptoms Respiratory: Reports: No Symptoms Cardiovascular: Reports: Syncope, Other (Pt had a sudden episode of syncope. ) Endocrine: Reports: No Symptoms GI/Abdominal: Reports: No Symptoms : Reports: No Symptoms Musculoskeletal: Reports: No Symptoms Skin: Reports: No Symptoms ED EXAM, GENERAL - Physical Exam Exam: See Below Free Text/Narrative:: Pt is very alert and oriented at this time. He had an episode of syncope at the [employer] where he works. Exam Limited By: No Limitations General Appearance: Alert, Mild Distress, Other (pupils are equal and reactive. ) Ears: Normal TMs Nose: Normal Inspection Throat/Mouth: Normal Inspection Head: Other ( Pt has a large laceration on the back of his head. He is very alert at this time. ) Neck: Normal Inspection Respiratory/Chest: No Respiratory Distress Cardiovascular: Regular Rate, Rhythm GI/Abdominal: Soft, Non-Tender (Male) Exam: Deferred Rectal (Males) Exam: Deferred Back Exam: Normal Inspection Extremities: Normal Inspection Neurological: Alert, Oriented, Normal Cognition Psychiatric: Normal Affect Course - Vital Signs Last Recorded V/S: Last Vital Signs Temp 36.2 C 08/31/17 09:54 Pulse 82 08/31/17 09:54 Resp 14 08/31/17 09:54 BP 123/68 08/31/17 09:54 Pulse Ox 97 08/31/17 09:54 Orthostatic Blood Pressure [ 117/68 Standing] Orthostatic Blood Pressure [ 133/76 Sitting] Orthostatic Blood Pressure [ 139/80 Supine] - Orders/Labs/Meds Orders: Active Orders 24 hr Category Date Time Status Orthostatic Vital Signs [RC] ASDIRECTED Care 08/31/17 07:43 Active Labs: Laboratory Tests 08/31/17 08/31/17 08/31/17 Range/Units 07:51 07:51 07:51 WBC 11.9 H (4.5-11.0) K/uL RBC 4.36 (4.30-5.90) M/uL Hgb 13.8 (12.0-15.0) g/dL Hct 42.1 (40.0-54.0) % MCV 97 (80-98) fL MCH 32 H (27-31) pg MCHC 33 (32-36) % Plt Count 334 (150-400) K/uL Neut % (Auto) 72 H (36-66) % Lymph % (Auto) 17 L (24-44) % [place] % (Auto) 9 H (2-6) % Eos % (Auto) 3 (2-4) % Baso % (Auto) 0 (0-1) % PT 10.4 (9.5-12.0) sec INR 0.97 (0.80-1.20) Sodium 140 (140-148) mmol/L Potassium 3.8 (3.6-5.2) mmol/L Chloride 105 (100-108) mmol/L Carbon Dioxide 25 (21-32) mmol/L Anion Gap 9.9 (5.0-14.0) mmol/L BUN 14 (7-18) mg/dL Creatinine 1.0 (0.8-1.3) mg/dL Est Cr Clr Drug Dosing TNP Estimated GFR (MDRD) > 60 (>60) Glucose 122 H (74-106) mg/dL Calcium 8.7 (8.5-10.1) mg/dL Total Bilirubin 0.3 (0.2-1.0) mg/dL AST 19 (15-37) U/L ALT 21 (12-78) U/L Alkaline Phosphatase 107 (46-116) U/L Troponin I < 0.017 (0.000-0.056) ng/mL Total Protein 6.8 (6.4-8.2) g/dL Albumin 3.2 L (3.4-5.0) g/dL Globulin 3.6 H (2.3-3.5) g/dL Albumin/Globulin Ratio 0.9 L (1.2-2.2) Meds: Medications Discontinued Medications Generic Name Dose Route Start Last Admin Trade Name Freq PRN Reason Stop Dose Admin Bacitracin 1 dose 08/31/17 08:04 08/31/17 08:32 Bacitracin Oint 1 Gm TOP 08/31/17 08:05 1 dose ONETIME ONE Administration Lidocaine HCl 20 ml 08/31/17 08:03 08/31/17 08:32 Xylocaine 1% INJECT 08/31/17 08:04 20 ml ONETIME ONE Administration - Re-Assessments/Exams Free Text/Narrative Re-Assessment/Exam: 08/31/17 09:17 pt has a neg cat scan of the head He had normal lab work. He was found to have a t shaped laceraTION ON THE BACK OF THE HEAD oNE LEG WAS 3.5 CM ANOTHER LEG WAS 2 CM AND ANOTHER LEG WAS 2.5 CH. Tanya WAS DEEP TO THE PERIOSTIUM. tHE WOUND WAD CLEANED WELL, INFILTRATED WITH LIDOCAINE CLOSED WITH 3-0 ETHILON, tHIS WAS CLOSED TIGHTLY AND THE BLEEDING STOPPED NICELY bACATRACIN AND A PRESSURE DRESSING WAS APPLIED. Departure - Departure Time of Disposition: : Disposition: Home, Self-Care 01 Condition: Fair Clinical Impression: Syncope, Postural hypotension - Discharge Information Instructions: Hypotension, [id number], Syncope, [id number] Referrals: Alphonso Mays MD [Primary Care Provider] - Forms: ED Department Discharge Care Plan Goals: TAKE PRESSURE DRESSING OFF IN THE AM. aPPLY BACATRACIN TO THE WOUND AND IT CAN BE LEFT OPEN TO AIR. . sR IN 7- 8 DAYS. SPLIT THE TERAZOSIN 5 MG AT NOON AND 5 MG AT HS.-- tO AVOID THE EARLY AM HYPOTENSION. Suture removal in 7-8 days. - My Orders Last 24 Hours: My Active Orders 08/31/17 07:43 Orthostatic Vital Signs [RC] ASDIRECTED - Assessment/Plan Last 24 Hours: My Active Orders 08/31/17 07:43 Orthostatic Vital Signs [RC] ASDIRECTED
--- NOTE | 2017-08-31 09:29 | CT ---
CT head without contrast. Total DLP 696. Findings: High parietal occipital scalp laceration/hematoma. Underlying calvarium is intact. No hemor rhage. No subacute territorial infarct. No mass effect or midline shift. Impression: 1. No acute intracranial process by CT
[2017-08-31 09:55] VITALS: BP 123/68
--- NOTE | 2017-08-31 11:06 | CR ---
Heart size within normal limits. Pulmonary vasculature within normal limits. No focal consolidation.
== END 2017-08-31 10:01 | disposition home or self-care (01) ==
LOC: JP.ED 07:30
DX: I95.1 Orthostatic hypotension (principal); S01.81XA Laceration without foreign body of other part of head, initial encounter; Z79.82 Long term (current) use of aspirin; Z79.899 Other long term (current) drug therapy; X58.XXXA Exposure to other specified factors, initial encounter
CPT/HCPCS: 12004; 36415; 70450; 70450-26; 71046; 71046-26; 80053; 84484; 85025; 85610; 99285-25

== ENCOUNTER 2017-09-18 10:16 | Emergency (ER) | payer OTHER, MEDICARE ==
[2017-09-18 10:37] VITALS: BP 85/55
--- NOTE | 2017-09-18 11:40 | EDM.PDOC ---
ED HPI GENERAL MEDICAL PROBLEM - General Chief Complaint: Syncope Stated Complaint: FALL, HIT HEAD Time Seen by Provider: 09/18/17 11:05 Source of Information: Reports: Patient, Family History Limitations: Reports: No Limitations - History of Present Illness INITIAL COMMENTS - FREE TEXT/NARRATIVE: Randal presents to the emergency room today due to having a syncopal episode at home. He reports he was cleaning the coffee pot, started coughing, had a feeling of weakness, felt like he was going to fall then blacked out for a few seconds. He bumped the back of his head on a nearby stand. Randal's states he became unsteady and fell onto the stand then the floor. She reports his eyes did not close all the way, he laid on the floor for a few seconds then became alert. Randal's also complains of cough for 3 weeks with scant mucus production and mild sinus congestion with post nasal drip. Randal denies SOB, chest pain, dizziness, headache, fever, chills, nausea, vomiting, incontinence of urine or stool. Onset: Today - Related Data Allergies Allergy/AdvReac Type Severity Reaction Status Date / Time No Known Allergies Allergy Verified 08/31/17 07:38 Home Meds: Home Meds Multivitamin [Multi-Vitamin Daily] 1 each PO DAILY 12/24/16 [History] Flint-3S/DHA/Epa/Fish Oil [Flint-3 Fish Oil 1,000 mg Sfgl] 1 each PO DAILY 12/24 [History] Terazosin HCl [Terazosin] 5 mg PO BID 12/24/16 [History] levETIRAcetam [Levetiracetam] 500 mg PO BID 12/24/16 [History] Aspirin 1 tab PO DAILY 01/23/17 [History] Ascorbic Acid [Vitamin C with Silvia Hips] 1 tab PO DAILY 08/31/17 [History] Past Medical History HEENT History: Reports: Cataract, Hard of Hearing Other HEENT History: hearing aids Cardiovascular History: Reports: Other (See Below) Other Cardiovascular History: tachycardia Other Respiratory History: A 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 Musculoskeletal History: Reports: Fracture Neurological History: Reports: Seizure Oncologic (Cancer) History: Reports: Prostate - Infectious Disease History Infectious Disease History: Reports: Chicken Pox, Mumps - Past Surgical History HEENT Surgical History: Reports: Cataract Surgery Other HEENT Surgeries/Procedures: Left eye Musculoskeletal Surgical History: Reports: Arthroscopic Knee Social & Family History - Family History Cardiac: Reports: Heart Failure, Other (See Below) - Tobacco Use Smoking Status *Q: Never Smoker - Caffeine Use Caffeine Use: Reports: Coffee - Recreational Drug Use Recreational Drug Use: No ED ROS GENERAL - Review of Systems Review Of Systems: See Below Constitutional: Denies: Fever, Chills, Malaise, Weakness HEENT: Reports: Other (mild sinus congestion with post nasal drip off and on for 3 weeks. Cough with scant mucus production for 3 weeks. ) Respiratory: Reports: Cough. Denies: Shortness of Breath, Wheezing, Sputum, Hemoptysis Cardiovascular: Reports: Syncope. Denies: Chest Pain, Dyspnea on Exertion, Edema, Lightheadedness, Palpitations, PND Endocrine: Reports: No Symptoms GI/Abdominal: Reports: No Symptoms : Reports: No Symptoms Musculoskeletal: Reports: No Symptoms Skin: Reports: Other (abrasion posterior head. ) Neurological: Reports: Syncope. Denies: Confusion, Dizziness, Headache, Numbness, Paresthesia, Tingling, Tremors, Trouble Speaking, Difficulty Walking, Weakness, Change in Speech, Gait Disturbance Psychiatric: Reports: No Symptoms Hematologic/Lymphatic: Reports: No Symptoms Immunologic: Reports: No Symptoms ED EXAM, GENERAL - Physical Exam Exam: See Below Free Text/Narrative:: Randal is an alert, oriented and pleasant 81 year old male who had syncope after coughing while cleaning his coffee pot standing today. He has a history of PAT and syncope in the past. Recent cardiology visit where he had an ECHO completed, negative cardiac work up. He states he was instructed to return to Cardiology in February,. His regular provider is Dr. Mays. Exam Limited By: No Limitations General Appearance: Alert, WD/WN, No Apparent Distress Eye Exam: Bilateral Eye: EOMI, Normal Inspection, PERRL Ears: Normal External Exam, Normal Canal, Hearing Grossly Normal, Normal TMs Ear Exam: Bilateral Ear: Auricle Normal, Canal Normal, TM normal Nose: Normal Inspection, Normal Mucosa, No Blood Throat/Mouth: Normal Inspection, Normal Lips, Normal Teeth, Normal Gums, Normal Oropharynx, Normal Voice, No Airway Compromise Head: Other (Abrasion to posterior occiput, no bleeding or skull depression. ) Neck: Normal Inspection, Supple, Non-Tender, Full Range of Motion. No: Limited Range of Motion, Lymphadenopathy (R), Lymphadenopathy (L) Respiratory/Chest: No Respiratory Distress, Lungs Clear, Normal Breath Sounds, No Accessory Muscle Use, Chest Non-Tender Cardiovascular: Normal Peripheral Pulses, Regular Rate, Rhythm, No Edema, No Gallop, No Murmur, Other (Noted patient heart rate with ambulation 162-186 BPM) Peripheral Pulses: 2+: Radial (L), Radial (R), Dorsalis Pedis (L), Dorsalis Pedis (R) GI/Abdominal: Normal Bowel Sounds, Soft, Non-Tender, No Organomegaly, No Distention, No Mass Back Exam: Normal Inspection, Full Range of Motion. No: CVA Tenderness (R), CVA Tenderness (L) Extremities: Normal Inspection, Normal Range of Motion, Non-Tender, No Pedal Edema, Normal Capillary Refill Neurological: Alert, Oriented, CN II-XII Intact, Normal Cognition, Normal Gait, Normal Reflexes, No Motor/Sensory Deficits Psychiatric: Normal Affect, Normal Mood Skin Exam: Warm, Dry, Intact, Normal Color, No Rash, Other (Abrasion to posterior occiput - superficial in nature. ) Lymphatic: No Adenopathy EKG INTERPRETATION EKG Date: 09/18/17 Rhythm: NSR [place]: Normal P-Wave: Present QRS: Normal ST-T: Normal QT: Normal EKG Interpretation Comments: No ST changes or acute findings. EKG compared to most recent, no changes. Course - Vital Signs Last Recorded V/S: Last Vital Signs Temp 36.3 C 09/18/17 10:51 Pulse 101 H 09/18/17 10:51 Resp 16 09/18/17 10:51 BP 85/55 L 09/18/17 10:51 Pulse Ox 93 L 09/18/17 10:51 Orthostatic Blood Pressure [ 93/56 Standing] Orthostatic Blood Pressure [ 85/55 Sitting] Orthostatic Blood Pressure [ 98/59 Supine] - Orders/Labs/Meds Orders: Active Orders 24 hr Category Date Time Status EKG Documentation Completion [RC] ASDIRECTED Care 09/18/17 11:41 Active Orthostatic Vital Signs [RC] ASDIRECTED Care 09/18/17 11:30 Active EKG 12 Lead [EK] Routine Ther 09/18/17 11:40 Ordered - Re-Assessments/Exams Free Text/Narrative Re-Assessment/Exam: 09/18/17 11:50 When patient up ambulating HR 162-186. 09/18/17 12:05 Discussed patient status with Dr. Sosa, Randal will restart his metoprolol 6.25mg po as directed. Patient in agreement. Recent negative cardiac work up per cardiology. Patient requesting to go home. Vital signs stable. He will be discharged to home, off of work until cleared per Dr. Mays. Departure - Departure Time of Disposition: 12:16 Disposition: Home, Self-Care 01 Condition: Good Clinical Impression: Vasovagal syncope Instructions: Vasovagal Syncope, Adult Referrals: Alphonso Mays MD [Primary Care Provider] - Forms: ED Department Discharge Additional Instructions: You have suffered from vasovagal syncope. Restart your metoprolol 6.25mg PO as previously ordered. Follow up with Dr. Mays early next week for recheck and any other adjustments. Drink plenty of water. For your cough, continue to use your humidifier, drink plenty of water, warm soothing tea. Take chlorpheniramine 4mg by mouth up to three times a day for cough. You can also use fluticasone nasal spray, 2 sprays each nostril at bedtime. No work until cleared by Dr. Mays. See Dr. Mays on ThursdaySeptember 22 at 10:30am. The appointment has been made. Return to the emergency room for worsening, issues or concerns. - My Orders Last 24 Hours: My Active Orders 09/18/17 11:30 Orthostatic Vital Signs [RC] ASDIRECTED 09/18/17 11:40 EKG 12 Lead [EK] Routine 09/18/17 11:41 EKG Documentation Completion [RC] ASDIRECTED - Assessment/Plan Last 24 Hours: My Active Orders 09/18/17 11:30 Orthostatic Vital Signs [RC] ASDIRECTED 09/18/17 11:40 EKG 12 Lead [EK] Routine 09/18/17 11:41 EKG Documentation Completion [RC] ASDIRECTED Assessment:: Vasovagal syncope Plan: Patient has suffered from vasovagal syncope. Small abrasion to the posterior scalp, may wash as normal and apply thin layer of bacitracin ointment to the abrasion once or twice per day. Restart metoprolol 6.25mg PO as previously ordered. Follow up with Dr. Mays early next week for recheck and any other adjustments. Drink plenty of water. For your cough, continue to use your humidifier, drink plenty of water, warm soothing tea. Take chlorpheniramine 4mg by mouth up to three times a day for cough. He can also use fluticasone nasal spray, 2 sprays each nostril at bedtime. No work until cleared by Dr. Mays. Acetaminophen for pain. See Dr. Mays on ThursdaySeptember 22 at 10:30am. The appointment has been made. Return to the emergency room for worsening, issues or concerns.
== END 2017-09-18 12:42 | disposition home or self-care (01) ==
LOC: JP.ED 10:16
DX: R55 Syncope and collapse (principal); S00.01XA Abrasion of scalp, initial encounter; Z79.82 Long term (current) use of aspirin; Z79.899 Other long term (current) drug therapy; W18.09XA Striking against other object with subsequent fall, initial encounter
CPT/HCPCS: 93005; 99284-25

== ENCOUNTER 2017-11-30 20:35 | Emergency (ER) | payer OTHER, MEDICARE ==
[2017-11-30] MEDS ORDERED: Sodium Chloride 0.9% 10 ML Syringe IV SCH (20:55)
[2017-11-30] MEDS ORDERED: Adenosine 6 MG/2 ML SDV ONE (20:58)
[2017-11-30] MEDS ORDERED: Sodium Chloride 0.9% 1,000 ML IV ONE (21:00)
[2017-11-30] MEDS ORDERED: Adenosine 6 MG/2 ML SDV IVPUSH ONE (21:05)
[2017-12-01 06:00] VITALS: BP 115/72
--- NOTE | 2017-12-01 09:56 | CR ---
Chest 1V Frontal INDICATION: PALPITATIONS COMPARISON: 08/31/2017 FINDINGS: AP portable chest. Heart size normal. Lungs are clear. No pleural effusion.
== END 2017-11-30 23:00 | disposition home or self-care (01) ==
LOC: JP.ED 20:35
DX: I47.1 Supraventricular tachycardia (principal)
CPT/HCPCS: 36415; 71045; 80053; 82553; 83735; 84443; 84484; 85025; 96361; 96374; 99285; J0153; J7040; 93010

== ENCOUNTER 2018-01-25 08:39 | Emergency (ER) | payer OTHER, MEDICARE ==
[2018-01-25 09:01] VITALS: BP 84/62
--- NOTE | 2018-01-25 09:28 | EDM.PDOC ---
ED HPI GENERAL MEDICAL PROBLEM - General Chief Complaint: General Stated Complaint: WEAK AND FAINT Time Seen by Provider: 01/25/18 09:15 Source of Information: Reports: Patient, Old Records, RN History Limitations: Reports: No Limitations - History of Present Illness INITIAL COMMENTS - FREE TEXT/NARRATIVE: 82 yo male with a PHx of SVT had another one of these episodes that began about 0715h today and resolved here in the ER about 0915h after a valsalva maneuver. He denies chest pain with this episode. He is not sure when he had his last episode of SVT. He is now feeling back to normal. Onset: Today Onset Date: 01/25/18 Onset Time: 07:15 Duration: Hour(s): (2), Constant Location: Reports: Chest Quality: Reports: Other (no pain) Severity: Moderate Improves with: Reports: Other (Valsalva here in the ER) Worsens with: Reports: Other (unknown) Context: Reports: Other (PHx of SVT) Associated Symptoms: Reports: Weakness Treatments FUEL MANAGER: Reports: Other (see below) (none) - Related Data Allergies Allergy/AdvReac Type Severity Reaction Status Date / Time No Known Allergies Allergy Verified 08/31/17 07:38 Home Meds: Home Meds Multivitamin [Multi-Vitamin Daily] 1 each PO DAILY 12/24/16 [History] Terazosin HCl [Terazosin] 5 mg PO BID 12/24/16 [History] levETIRAcetam [Levetiracetam] 500 mg PO BID 12/24/16 [History] Aspirin 1 tab PO DAILY 01/23/17 [History] Ascorbic Acid [Vitamin C with Silvia Hips] 1,000 mg PO DAILY 08/31/17 [History] Levothyroxine 25 mcg PO DAILY 01/25/18 [History] Metoprolol Tartrate 4.125 mg PO BID 01/25/18 [History] Psyllium Husk [Metamucil] 660 gm PO BEDTIME 01/25/18 [History] Past Medical History HEENT History: Reports: Cataract, Hard of Hearing Other HEENT History: hearing aids Cardiovascular History: Reports: Other (See Below) Other Cardiovascular History: tachycardia Other Respiratory History: A 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 Musculoskeletal History: Reports: Fracture Neurological History: Reports: Seizure Oncologic (Cancer) History: Reports: Prostate - Infectious Disease History Infectious Disease History: Reports: Chicken Pox, Mumps - Past Surgical History HEENT Surgical History: Reports: Cataract Surgery Other HEENT Surgeries/Procedures: Left eye Musculoskeletal Surgical History: Reports: Arthroscopic Knee Social & Family History - Family History Cardiac: Reports: Heart Failure, Other (See Below) - Caffeine Use Caffeine Use: Reports: Coffee ED ROS GENERAL - Review of Systems Review Of Systems: See Below Constitutional: Reports: Weakness HEENT: Reports: No Symptoms Respiratory: Reports: No Symptoms Cardiovascular: Reports: Palpitations Endocrine: Reports: No Symptoms GI/Abdominal: Reports: No Symptoms : Reports: No Symptoms Musculoskeletal: Reports: No Symptoms Skin: Reports: No Symptoms Neurological: Reports: No Symptoms ED EXAM, GENERAL - Physical Exam Exam: See Below Exam Limited By: No Limitations General Appearance: Alert, WD/WN, No Apparent Distress Eye Exam: Bilateral Eye: Normal Inspection Ears: Normal External Exam, Normal Canal, Hearing Grossly Normal, Normal TMs Ear Exam: Bilateral Ear: Auricle Normal, Canal Normal Nose: Normal Inspection, Normal Mucosa, No Blood Throat/Mouth: Normal Inspection, Normal Lips, Normal Oropharynx, Normal Voice, No Airway Compromise Head: Atraumatic, Normocephalic Neck: Normal Inspection, Supple Respiratory/Chest: No Respiratory Distress, Lungs Clear, Normal Breath Sounds, No Accessory Muscle Use Cardiovascular: Tachycardia GI/Abdominal: Normal Bowel Sounds, Soft, Non-Tender, No Distention Back Exam: Normal Inspection. No: CVA Tenderness (R), CVA Tenderness (L) Extremities: Normal Inspection, Normal Range of Motion, Non-Tender Neurological: Alert, Oriented, CN II-XII Intact, Normal Cognition, No Motor/ Sensory Deficits Psychiatric: Normal Affect, Normal Mood Skin Exam: Warm, Dry, Intact, Normal Color, No Rash EKG INTERPRETATION EKG Date: 01/25/18 Time: 09:15 Rhythm: Other (sinus bradycardia) Rate (Beats/Min): 56 [place]: Normal P-Wave: Present QRS: Normal ST-T: Normal QT: Normal EKG Interpretation Comments: PAC present, first degree A-V block present. Note: this tracing obtained after conversion to NSR via Valsalva. Course - Vital Signs Last Recorded V/S: Last Vital Signs Temp 35.7 C 01/25/18 09:23 Pulse 122 H 01/25/18 09:23 Resp 15 01/25/18 09:23 BP 84/62 L 01/25/18 09:23 Pulse Ox 95 01/25/18 09:23 - Orders/Labs/Meds Orders: Active Orders 24 hr Category Date Time Status EKG Documentation Completion [RC] ASDIRECTED Care 01/25/18 09:39 Active EKG 12 Lead [EK] Routine Ther 01/25/18 09:39 Ordered Labs: Laboratory Tests 01/25/18 01/25/18 Range/Units 09:37 09:37 WBC 9.1 (4.5-11.0) K/uL RBC 4.37 (4.30-5.90) M/uL Hgb 13.5 (12.0-15.0) g/dL Hct 41.9 (40.0-54.0) % MCV 96 (80-98) fL MCH 31 (27-31) pg MCHC 32 (32-36) % Plt Count 283 (150-400) K/uL Sodium 139 L (140-148) mmol/L Potassium 4.1 (3.6-5.2) mmol/L Chloride 104 (100-108) mmol/L Carbon Dioxide 26 (21-32) mmol/L Anion Gap 13.1 (5.0-14.0) mmol/L BUN 17 (7-18) mg/dL Creatinine 1.1 (0.8-1.3) mg/dL Est Cr Clr Drug Dosing 50.95 mL/min Estimated GFR (MDRD) > 60 (>60) Glucose 124 H (74-106) mg/dL Calcium 8.8 (8.5-10.1) mg/dL Troponin I 0.019 (0.000-0.056) ng/mL Departure - Departure Time of Disposition: 10:26 Disposition: Home, Self-Care 01 Condition: Good Clinical Impression: PSVT (paroxysmal supraventricular tachycardia) - Discharge Information Referrals: Alphonso Mays MD [Primary Care Provider] - Forms: ED Department Discharge - My Orders Last 24 Hours: My Active Orders 01/25/18 09:39 EKG Documentation Completion [RC] ASDIRECTED EKG 12 Lead [EK] Routine - Assessment/Plan Last 24 Hours: My Active Orders 01/25/18 09:39 EKG Documentation Completion [RC] ASDIRECTED EKG 12 Lead [EK] Routine
== END 2018-01-25 10:40 | disposition home or self-care (01) ==
LOC: JP.ED 08:39
DX: I47.1 Supraventricular tachycardia (principal); Z79.899 Other long term (current) drug therapy
CPT/HCPCS: 36415; 80048; 84484; 85027; 93005; 99284-25

== ENCOUNTER 2018-02-07 10:30 | Emergency (ER) | payer OTHER, MEDICARE ==
[2018-02-07] MEDS ORDERED: Adenosine 6 MG/2 ML SDV IVPUSH ONE ×3 (10:58→11:32)
[2018-02-07] MEDS ORDERED: Sodium Chloride 0.9% 1,000 ML IV SCH (11:15)
--- NOTE | 2018-02-07 11:15 | EDM.PDOC ---
ED HPI GENERAL MEDICAL PROBLEM - General Chief Complaint: Syncope Stated Complaint: PULSE 155, VERY WEAK Time Seen by Provider: 02/07/18 11:06 Source of Information: Reports: Patient History Limitations: Reports: No Limitations - History of Present Illness INITIAL COMMENTS - FREE TEXT/NARRATIVE: pt arrived with a rapid heart beat that started suddenly this am. He has a history of recurrent pat . He usually connverts well with adenogard. He has slight chest tightness but no actual chest pain. m Onset: Today, Sudden Duration: Hour(s):, Other ( He has had it for 3 hours at home. ) Location: Reports: Chest Associated Symptoms: Reports: No Other Symptoms - Related Data Allergies Allergy/AdvReac Type Severity Reaction Status Date / Time No Known Allergies Allergy Verified 02/07/18 10:50 Home Meds: Home Meds Multivitamin [Multi-Vitamin Daily] 1 each PO DAILY 12/24/16 [History] Terazosin HCl [Terazosin] 5 mg PO BID 12/24/16 [History] levETIRAcetam [Levetiracetam] 500 mg PO BID 12/24/16 [History] Aspirin 1 tab PO DAILY 01/23/17 [History] Ascorbic Acid [Vitamin C with Silvia Hips] 1,000 mg PO DAILY 08/31/17 [History] Levothyroxine 25 mcg PO DAILY 01/25/18 [History] Metoprolol Tartrate 4.125 mg PO BID 01/25/18 [History] Psyllium Husk [Metamucil] 660 gm PO BEDTIME 01/25/18 [History] Past Medical History HEENT History: Reports: Cataract, Hard of Hearing Other HEENT History: hearing aids Cardiovascular History: Reports: Other (See Below) Other Cardiovascular History: tachycardia Other Respiratory History: A 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 Musculoskeletal History: Reports: Fracture Neurological History: Reports: Seizure Oncologic (Cancer) History: Reports: Prostate - Infectious Disease History Infectious Disease History: Reports: Chicken Pox, Mumps - Past Surgical History HEENT Surgical History: Reports: Cataract Surgery Other HEENT Surgeries/Procedures: Left eye Musculoskeletal Surgical History: Reports: Arthroscopic Knee Social & Family History - Family History Cardiac: Reports: Heart Failure, Other (See Below) - Tobacco Use Smoking Status *Q: Never Smoker - Caffeine Use Caffeine Use: Reports: Coffee - Recreational Drug Use Recreational Drug Use: No ED ROS GENERAL - Review of Systems Review Of Systems: See Below Constitutional: Reports: No Symptoms HEENT: Reports: No Symptoms Respiratory: Reports: No Symptoms Cardiovascular: Reports: Other ( chest tightness and a rapid rhythm. ) Endocrine: Reports: No Symptoms GI/Abdominal: Reports: No Symptoms : Reports: No Symptoms Musculoskeletal: Reports: No Symptoms Skin: Reports: No Symptoms ED EXAM, GENERAL - Physical Exam Exam: See Below Free Text/Narrative:: pt has a history of pat and this has been recurrent for him. He had an episode 2 weeks ago that converted with a valsalva . He has a episode tode which he has tried everything on for conversion and has not been sucessful. He has slight chest tightness. He has been in the rhythm for about 3 hours. Exam Limited By: No Limitations General Appearance: Alert, Anxious, Mild Distress Ears: Normal TMs Nose: Normal Inspection Throat/Mouth: Normal Inspection Head: Atraumatic Neck: Normal Inspection Respiratory/Chest: No Respiratory Distress Cardiovascular: Regular Rate, Rhythm, Tachycardia, Other ( rate is 170. ) GI/Abdominal: Soft, Non-Tender Rectal (Males) Exam: Deferred Back Exam: Normal Inspection Extremities: Normal Inspection Neurological: Alert, Oriented, Normal Cognition Psychiatric: Normal Affect Course - Vital Signs Last Recorded V/S: Last Vital Signs Temp 36.0 C 02/07/18 10:47 Pulse 168 H 02/07/18 11:21 Resp 16 02/07/18 11:21 BP 101/50 L 02/07/18 11:21 Pulse Ox 95 02/07/18 11:21 - Orders/Labs/Meds Orders: Active Orders 24 hr Category Date Time Status Sodium Chloride 0.9% [Normal Saline] 1,000 ml Med 02/07/18 11:15 Active IV ASDIRECTED Medication Orders Sodium Chloride (Normal Saline) 1,000 mls @ 250 mls/hr IV ASDIRECTED DANIELA Last Admin: 02/07/18 11:21 Dose: 250 mls/hr Labs: Laboratory Tests 02/07/18 02/07/18 02/07/18 Range/Units 10:58 10:58 11:16 WBC 11.7 H (4.5-11.0) K/uL RBC 4.60 (4.30-5.90) M/uL Hgb 14.5 (12.0-15.0) g/dL Hct 43.6 (40.0-54.0) % MCV 95 (80-98) fL MCH 32 H (27-31) pg MCHC 33 (32-36) % Plt Count 318 (150-400) K/uL Neut % (Auto) 70 H (36-66) % Lymph % (Auto) 17 L (24-44) % [place] % (Auto) 11 H (2-6) % Eos % (Auto) 2 (2-4) % Baso % (Auto) 0 (0-1) % Sodium 137 L (140-148) mmol/L Potassium 4.5 (3.6-5.2) mmol/L Chloride 104 (100-108) mmol/L Carbon Dioxide 24 (21-32) mmol/L Anion Gap 13.5 (5.0-14.0) mmol/L BUN 19 H (7-18) mg/dL Creatinine 1.1 (0.8-1.3) mg/dL Est Cr Clr Drug Dosing 50.95 mL/min Estimated GFR (MDRD) > 60 (>60) Glucose 123 H (74-106) mg/dL Calcium 9.0 (8.5-10.1) mg/dL Magnesium 2.0 (1.8-2.4) mg/dL Total Bilirubin 0.3 (0.2-1.0) mg/dL AST 21 (15-37) U/L ALT 22 D (12-78) U/L Alkaline Phosphatase 111 (46-116) U/L Troponin I < 0.017 (0.000-0.056) ng/mL Total Protein 7.4 (6.4-8.2) g/dL Albumin 3.5 (3.4-5.0) g/dL Globulin 3.9 H (2.3-3.5) g/dL Albumin/Globulin Ratio 0.9 L (1.2-2.2) Meds: Medications Generic Name Dose Route Start Last Admin Trade Name Freq PRN Reason Stop Dose Admin Sodium Chloride 1,000 mls @ 250 mls/hr 02/07/18 11:15 02/07/18 11:21 Normal Saline IV 250 mls/hr ASDIRECTED DANIELA Administration Discontinued Medications Generic Name Dose Route Start Last Admin Trade Name Yoana PRN Reason Stop Dose Admin Adenosine 6 mg 02/07/18 10:58 02/07/18 11:02 Adenocard IVPUSH 02/07/18 10:59 6 mg NOW ONE Administration Adenosine 12 mg 02/07/18 11:04 02/07/18 11:08 Adenocard IVPUSH 02/07/18 11:05 12 mg NOW ONE Administration Adenosine 12 mg 02/07/18 11:32 02/07/18 11:50 Adenocard IVPUSH 02/07/18 11:33 12 mg NOW ONE Administration - Re-Assessments/Exams Free Text/Narrative Re-Assessment/Exam: 02/07/18 12:40 pt was given 6 of adenogard with no results. He was given 12 mg and he converted but immediately went back into the PAT. His lab work got back and his mag and electrolytes were normal. Another 12 mg of adenogard was given and he converted and held at this time. Departure - Departure Time of Disposition: 12:43 Disposition: Home, Self-Care 01 Condition: Fair Clinical Impression: PAT (paroxysmal atrial tachycardia) Referrals: Alphonso Mays MD [Primary Care Provider] - Forms: ED Department Discharge Care Plan Goals: low activity today, connt same meds, appt with Dr Mays next week. - My Orders Last 24 Hours: My Active Orders 02/07/18 11:15 Sodium Chloride 0.9% [Normal Saline] 1,000 ml IV ASDIRECTED - Assessment/Plan Last 24 Hours: My Active Orders 02/07/18 11:15 Sodium Chloride 0.9% [Normal Saline] 1,000 ml IV ASDIRECTED
[2018-02-07 11:22] VITALS: BP 101/50
[2018-02-07] MEDS ORDERED: Metoprolol Tartrate 25 MG Tab PO ONE (12:42)
== END 2018-02-07 13:19 | disposition home or self-care (01) ==
LOC: JP.ED 10:30
DX: I47.1 Supraventricular tachycardia (principal); Z79.82 Long term (current) use of aspirin; Z79.899 Other long term (current) drug therapy
CPT/HCPCS: 36415; 80053; 83735; 84484; 85025; 96374; 96376; 99284; J0153; J7030

== ENCOUNTER 2018-03-08 08:35 | Emergency (ER) | payer MEDICARE, OTHER ==
[2018-03-08] MEDS ORDERED: Adenosine 6 MG/2 ML SDV IVPUSH ONE (08:56)
[2018-03-08] MEDS ORDERED: Adenosine 6 MG/2 ML SDV ONE (08:56)
[2018-03-08] MEDS ORDERED: Verapamil 5 MG/2 ML SDV IVPUSH ONE (09:02)
--- NOTE | 2018-03-08 09:47 | EDM.PDOC ---
ED HPI GENERAL MEDICAL PROBLEM - General Chief Complaint: Cardiovascular Problem Stated Complaint: HEART ISSUES Time Seen by Provider: 03/08/18 09:00 Source of Information: Reports: Patient, Family History Limitations: Reports: No Limitations - History of Present Illness INITIAL COMMENTS - FREE TEXT/NARRATIVE: 82-year-old male with recurring syncopal episodes, known history of recurring SVT presents this morning with generalized malaise and weakness. 2 days ago he had a syncopal episode at home where he bumped the back of his head and landed on his tailbone, both or sore but he had no significant injury and was not seen. This morning he was going to go back to work as he was feeling okay, but his convinced him to take 1 more day off work. He went into the bathroom and when he came out he was feeling lightheaded and uncomfortable but no chest pain or shortness of breath. His felt he looked poorly so brought him in to be seen, a monitor showed SVT with a rate of 178. He had a recent cardiology consultation, and has an electrophysiology appointment in [place] coming up on March 24. Onset: Unknown/Unsure Severity: Moderate Associated Symptoms: Reports: Malaise, Syncope, Weakness. Denies: Confusion, Chest Pain, Shortness of Breath - Related Data Allergies Allergy/AdvReac Type Severity Reaction Status Date / Time No Known Allergies Allergy Verified 03/08/18 09:11 Home Meds: Home Meds Multivitamin [Multi-Vitamin Daily] 1 each PO DAILY 12/24/16 [History] Terazosin HCl [Terazosin] 5 mg PO BID 12/24/16 [History] levETIRAcetam [Levetiracetam] 500 mg PO BID 12/24/16 [History] Aspirin 1 tab PO DAILY 01/23/17 [History] Ascorbic Acid [Vitamin C with Silvia Hips] 1,000 mg PO DAILY 08/31/17 [History] Levothyroxine 25 mcg PO DAILY 01/25/18 [History] Metoprolol Tartrate 6.25 mg PO BID 01/25/18 [History] Psyllium Husk [Metamucil] 660 gm PO BEDTIME 01/25/18 [History] Past Medical History HEENT History: Reports: Cataract, Hard of Hearing Other HEENT History: hearing aids Cardiovascular History: Reports: Other (See Below) Other Cardiovascular History: tachycardia Other Respiratory History: A 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 Musculoskeletal History: Reports: Arthritis, Fracture Neurological History: Reports: Seizure Oncologic (Cancer) History: Reports: Prostate - Infectious Disease History Infectious Disease History: Reports: Chicken Pox, Mumps - Past Surgical History HEENT Surgical History: Reports: Cataract Surgery Other HEENT Surgeries/Procedures: Left eye Musculoskeletal Surgical History: Reports: Arthroscopic Knee Social & Family History - Family History Cardiac: Reports: Heart Failure, Other (See Below) - Tobacco Use Smoking Status *Q: Never Smoker - Caffeine Use Caffeine Use: Reports: Coffee - Recreational Drug Use Recreational Drug Use: No ED ROS GENERAL - Review of Systems Review Of Systems: See Below Constitutional: Reports: Malaise. Denies: Fever, Chills HEENT: Reports: No Symptoms Respiratory: Denies: Shortness of Breath Cardiovascular: Reports: Palpitations. Denies: Chest Pain GI/Abdominal: Denies: Abdominal Pain, Nausea, Vomiting : Reports: No Symptoms Musculoskeletal: Reports: Other (Some soreness on his sacrum from her recent fall) Skin: Reports: Other (Bruise on the posterior scalp from a recent fall) Neurological: Reports: Syncope. Denies: Headache Psychiatric: Reports: No Symptoms ED EXAM, GENERAL - Physical Exam Exam: See Below Exam Limited By: No Limitations General Appearance: Alert, No Apparent Distress Eye Exam: Bilateral Eye: Normal Inspection Head: Other (Superficial bruise on the occiput of the scalp) Respiratory/Chest: No Respiratory Distress, Lungs Clear Cardiovascular: Regular Rate, Rhythm, Tachycardia GI/Abdominal: Soft, Non-Tender Extremities: Normal Inspection. No: Pedal Edema Neurological: Alert, Oriented Psychiatric: Normal Affect, Normal Mood Course - Vital Signs Last Recorded V/S: Last Vital Signs Temp 97.1 F 03/08/18 08:58 Pulse 59 L 03/08/18 10:26 Resp 14 03/08/18 10:26 BP 128/68 03/08/18 10:26 Pulse Ox 95 03/08/18 10:26 - Orders/Labs/Meds Orders: Active Orders 24 hr Category Date Time Status EKG Documentation Completion [RC] ASDIRECTED Care 03/08/18 09:17 Active EKG 12 Lead [EK] Routine Ther 03/08/18 09:17 Ordered Labs: Laboratory Tests 03/08/18 03/08/18 Range/Units 09:27 09:27 WBC 10.1 (4.5-11.0) K/uL RBC 4.30 (4.30-5.90) M/uL Hgb 13.3 (12.0-15.0) g/dL Hct 40.9 (40.0-54.0) % MCV 95 (80-98) fL MCH 31 (27-31) pg MCHC 33 (32-36) % Plt Count 291 (150-400) K/uL Neut % (Auto) 66 (36-66) % Lymph % (Auto) 20 L (24-44) % [place] % (Auto) 11 H (2-6) % Eos % (Auto) 3 (2-4) % Baso % (Auto) 0 (0-1) % Sodium 138 L (140-148) mmol/L Potassium 3.9 (3.6-5.2) mmol/L Chloride 105 (100-108) mmol/L Carbon Dioxide 25 (21-32) mmol/L Anion Gap 11.9 (5.0-14.0) mmol/L BUN 15 (7-18) mg/dL Creatinine 1.0 (0.8-1.3) mg/dL Est Cr Clr Drug Dosing 56.05 mL/min Estimated GFR (MDRD) > 60 (>60) Glucose 126 H (74-106) mg/dL Calcium 8.5 (8.5-10.1) mg/dL Troponin I < 0.017 (0.000-0.056) ng/mL Meds: Medications Discontinued Medications Generic Name Dose Route Start Last Admin Trade Name Freq PRN Reason Stop Dose Admin Adenosine 6 mg 03/08/18 08:56 03/08/18 08:59 Adenocard IVPUSH 03/08/18 08:57 6 mg NOW ONE Administration Adenosine Confirm 03/08/18 08:56 03/08/18 10:43 Adenocard Administered 03/08/18 08:57 Not Given Dose 18 mg .ROUTE .STK-MED ONE Verapamil HCl 5 mg 03/08/18 09:02 03/08/18 09:06 Calan IVPUSH 03/08/18 09:03 5 mg ONETIME ONE Administration - Re-Assessments/Exams Free Text/Narrative Re-Assessment/Exam: 03/08/18 09:45 Patient was placed on cardiac monitoring, was given 6 mg of adenosine IV which converted him briefly that he returned to SVT. IV fluids were then started and he was given 5 mg of IV verapamil which slowed his SVT rate to 146, and he converted to sinus rhythm and remained stable. CBC, BMP, troponin were obtained as well as a postconversion EKG which was normal other than a significant first- degree block. 03/08/18 10:24 Labs returned reassuring. Troponin was negative. I discussed his condition with the hospitalist at [facility] in [place] along with my concerns that this is a problem that is recurring too frequently and he is at high risk of injury. He kindly accepted the patient for inpatient admission as an electrophysiology consultation will be able to be obtained rather than waiting over 2 more weeks. Departure - Departure Time of Disposition: 10:54 Disposition: DC/Tfer to Other Reason for Transfer *Q: Other Condition: Good Clinical Impression: PSVT (paroxysmal supraventricular tachycardia) Syncope Qualifiers: Syncope type: unspecified Qualified Code(s): R55 - Syncope and collapse Instructions: Supraventricular Tachycardia, Adult Referrals: Alphonso Mays MD [Primary Care Provider] - Forms: ED Department Discharge Care Plan Goals: Go directly to [facility] for admission for more evaluation of your cardiac arrhythmia and fainting. - My Orders Last 24 Hours: My Active Orders 03/08/18 09:17 EKG Documentation Completion [RC] ASDIRECTED EKG 12 Lead [EK] Routine - Assessment/Plan Last 24 Hours: My Active Orders 03/08/18 09:17 EKG Documentation Completion [RC] ASDIRECTED EKG 12 Lead [EK] Routine
[2018-03-08 10:30] VITALS: BP 128/68
== END 2018-03-08 10:54 | disposition other institution (70) ==
LOC: JP.ED 08:35
DX: I47.1 Supraventricular tachycardia (principal); R55 Syncope and collapse; S00.03XA Contusion of scalp, initial encounter; Z79.82 Long term (current) use of aspirin; Z79.899 Other long term (current) drug therapy
CPT/HCPCS: 36415; 80048; 84484; 85025; 93005; 96374; 96375; 99285; J0153; J3490

== ENCOUNTER 2020-01-29 03:51 | Emergency (ER) | payer MEDICARE, BC ==
[2020-01-29 04:19] VITALS: BP 118/75; PULSE 65
--- NOTE | 2020-01-29 04:34 | EDM.PDOC ---
ED HPI GENERAL MEDICAL PROBLEM - General Chief Complaint: Genitourinary Problem Stated Complaint: GROIN PAIN Time Seen by Provider: 01/29/20 04:34 Source of Information: Reports: Patient, Family History Limitations: Reports: No Limitations - History of Present Illness INITIAL COMMENTS - FREE TEXT/NARRATIVE: 84-year-old male who has lower abdominal and groin pain, unable to pass his urine except just dribbling for the past several days to weeks. His primary provider has tried oxybutynin as well as antibiotics but is not improving. He has a known history of prostate cancer and they placed seeds in his prostate 17 years ago. When he arrived to the emergency room he did provide a UA by just slowly dribbling into a cup. Onset: Unknown/Unsure (Symptoms have been ongoing for a while) Associated Symptoms: Denies: Malaise, Nausea/Vomiting, Shortness of Breath, Weakness Lower Abdomen Pain Score (Numeric/FACES): 5 - Related Data Allergies Allergy/AdvReac Type Severity Reaction Status Date / Time No Known Allergies Allergy Verified 03/08/18 09:11 Home Meds: Home Meds Multivitamin [Multi-Vitamin Daily] 1 each PO DAILY 12/24/16 [History] Terazosin HCl [Terazosin] 5 mg PO BID 12/24/16 [History] levETIRAcetam [Levetiracetam] 500 mg PO BID 12/24/16 [History] Levothyroxine 50 mcg PO DAILY 01/25/18 [History] Metoprolol Tartrate 37.5 mg PO BID 01/25/18 [History] Psyllium Husk [Metamucil] 660 gm PO BEDTIME 01/25/18 [History] Oxybutynin 5 mg PO BID 01/29/20 [History] Sulfamethoxazole/Trimethoprim [Sulfamethoxazole-Tmp Ds Tablet] 1 tab PO DAILY 01/29/20 [History] Warfarin [Coumadin] 5 mg PO DAILY 01/29/20 [History] Past Medical History HEENT History: Reports: Cataract, Hard of Hearing Other HEENT History: hearing aids Cardiovascular History: Reports: Afib Other Cardiovascular History: tachycardia Other Respiratory History: A 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 Musculoskeletal History: Reports: Arthritis, Fracture Neurological History: Reports: Seizure Endocrine/Metabolic History: Reports: Hypothyroidism Hematologic History: Reports: Anticoagulation Therapy Oncologic (Cancer) History: Reports: Prostate - Infectious Disease History Infectious Disease History: Reports: Chicken Pox, Mumps - Past Surgical History HEENT Surgical History: Reports: Cataract Surgery Other HEENT Surgeries/Procedures: Left eye Cardiovascular Surgical History: Reports: AICD Musculoskeletal Surgical History: Reports: Arthroscopic Knee Social & Family History - Family History Family Medical History: Noncontributory Cardiac: Reports: Heart Failure, Other (See Below) - Tobacco Use Smoking Status *Q: Never Smoker - Caffeine Use Caffeine Use: Reports: Coffee - Recreational Drug Use Recreational Drug Use: No ED ROS GENERAL - Review of Systems Review Of Systems: See Below Constitutional: Denies: Fever, Chills Respiratory: Denies: Shortness of Breath Cardiovascular: Denies: Chest Pain GI/Abdominal: Reports: Abdominal Pain. Denies: Nausea, Vomiting : Reports: Frequency, Urgency, Urinary Retention ED EXAM, RENAL/ - Physical Exam Exam: See Below Exam Limited By: No Limitations General Appearance: Alert, No Apparent Distress Respiratory/Chest: No Respiratory Distress (Looks mildly uncomfortable but not distressed) Cardiovascular: Regular Rate, Rhythm GI/Abdominal: Tender (Lower abdomen is tender and full to palpation) (Male) Exam: Suprapubic Fullness Neurological: Alert, Oriented Psychiatric: Normal Affect, Normal Mood Skin Exam: Warm, Dry Course - Vital Signs Last Recorded V/S: Last Vital Signs Temp 96.3 F L 01/29/20 04:08 Pulse 65 01/29/20 04:08 Resp 16 01/29/20 04:08 BP 118/75 01/29/20 04:08 Pulse Ox 96 01/29/20 04:08 - Orders/Labs/Meds Orders: Active Orders 24 hr Category Date Time Status Insert Nieto Catheter [Insert Urinary Catheter] [OM.PC] Care 01/29/20 05:00 Ordered Q24H Urinary Catheter Assessment [RC] ASDIRECTED Care 01/29/20 04:48 Active Labs: Laboratory Tests 01/29/20 Range/Units 04:33 Urine Color Yellow (YELLOW) Urine Appearance Clear (CLEAR) Urine pH 6.0 (5.0-8.0) Ur Specific [place] 1.010 (1.008-1.030) Urine Protein Negative (NEGATIVE) mg/dL Urine Glucose (UA) Negative (NEGATIVE) mg/dL Urine Ketones Negative (NEGATIVE) mg/dL Urine Occult Blood Negative (NEGATIVE) Urine Nitrite Negative (NEGATIVE) Urine Bilirubin Negative (NEGATIVE) Urine Urobilinogen 0.2 (0.2-1.0) EU/dL Ur Leukocyte Esterase Negative (NEGATIVE) Urine RBC 0-5 (0-5) Urine WBC 0-5 (0-5) Ur Epithelial Cells Few Amorphous Sediment Not seen Urine Bacteria Few Urine Mucus Not seen Meds: Medications Discontinued Medications Generic Name Dose Route Start Last Admin Trade Name Yoana PRN Reason Stop Dose Admin Lidocaine HCl 10 ml 01/29/20 04:49 01/29/20 05:24 Xylocaine 2% Jelly MUCMEM 01/29/20 04:50 10 ml ONETIME ONE Administration - Re-Assessments/Exams Free Text/Narrative Re-Assessment/Exam: 01/29/20 04:52 After urinating, bladder scan revealed he still had over 500 cc of urine in his bladder. The UA he did provide was negative. A Urojet was used for anesthesia and a Nieto was attempted to be placed to empty his bladder. 01/29/20 05:30 Unfortunately after 2 attempts with a 14-gauge catheter, as well as a coud catheter there was just too much obstruction to get the catheter passed. I called [facility] to talk with urology. 01/29/20 05:38 On-call urology agreed to see the patient if he came down to the emergency room. Patient and his refused an emergency transfer with EMS. Patient's will drive him to [facility] later today and he will be seen by Dr. Burt at that time for ongoing chronic outlet bladder obstruction. Departure - Departure Time of Disposition: 05:56 Disposition: Home, Self-Care 01 Clinical Impression: Chronic retention of urine - Discharge Information Instructions: Benign Prostatic Hyperplasia Referrals: Alphonso Mays MD [Primary Care Provider] - Forms: ED Department Discharge Care Plan Goals: If you could go to [facility] today, through the emergency room, the urologist will see you to establish a catheter or some other type of treatment for your chronic urine retention. Sepsis Event Note (ED) - Evaluation Sepsis Screening Result: No Definite Risk - Focused Exam Vital Signs: Vital Signs Temp Pulse Resp BP Pulse Ox 01/29/20 04:08 96.3 F L 65 16 118/75 96 - My Orders Last 24 Hours: My Active Orders 01/29/20 04:48 Urinary Catheter Assessment [RC] ASDIRECTED 01/29/20 05:00 Insert Nieto Catheter [Insert Urinary Catheter] [OM.PC] Q24H - Assessment/Plan Last 24 Hours: My Active Orders 01/29/20 04:48 Urinary Catheter Assessment [RC] ASDIRECTED 01/29/20 05:00 Insert Nieto Catheter [Insert Urinary Catheter] [OM.PC] Q24H
[2020-01-29] MEDS ORDERED: Lidocaine 2% Jelly 10 ML Urojet MUCMEM ONE (04:49)
== END 2020-01-29 05:56 | disposition home or self-care (01) ==
LOC: JP.ED 03:51
DX: R33.9 Retention of urine, unspecified (principal); I48.91 Unspecified atrial fibrillation; E03.9 Hypothyroidism, unspecified; R56.9 Unspecified convulsions; Z79.899 Other long term (current) drug therapy; Z79.01 Long term (current) use of anticoagulants
CPT/HCPCS: 51798; 81001; 99284

== ENCOUNTER 2020-06-16 08:00 | Day surgery (SDC) | payer MEDICARE, BC ==
[~2020-06-16 08:00] MED LIST: Acetaminophen 500 MG Tab PO ONE; Bupivacaine 0.5%/EPINEPHrine 1:200,000 50 ML MDV ONE; Dexamethasone 4 MG/ML SDV ONE; Ondansetron 4 MG/2 ML SDV ONE; Propofol 200 MG/20 ML SDV ONE; Rocuronium 50 MG/5 ML Vial ONE; Sugammadex Sodium 200 MG/2 ML VIAL ONE; fentaNYL 250 MCG/5 ML SDV ONE
[2020-06-16] MEDS ORDERED: Meropenem 500 MG in Sodium Chloride 0.9% 50 ML IV ONE (09:00)
[2020-06-16] MEDS ORDERED: Lidocaine 2% 5 ML SDV ONE (10:11)
[2020-06-16] MEDS ORDERED: Glycopyrrolate 0.2 MG/ML 5 ML MDV ONE (10:40)
[2020-06-16] MEDS ORDERED: Neostigmine Methylsulfate 1 MG/ML 5 ML Syringe ONE (11:03)
[2020-06-16] MEDS: Dextrose 5%-Lactated Ringers 1,000 ML IV SCH ×2 (12:09→14:33)
[2020-06-16] MEDS ORDERED: oxyCODONE 5 MG Tab PO PRN (13:02)
[2020-06-16] MEDS ORDERED: Trospium 20 MG Tab PO PRN (13:06)
[2020-06-16] MEDS ORDERED: Ondansetron 4 MG/2 ML SDV IVPUSH PRN (14:00)
[2020-06-16] MEDS ORDERED: HYDROmorphone 1 MG/ML Syringe IV PRN (14:00)
[2020-06-16] MEDS ORDERED: HYDROmorphone 0.5 MG/0.5 ML Syringe IVPUSH PRN (14:00)
[2020-06-16] MEDS ORDERED: Warfarin 5 MG Tab PO SCH (16:00)
[2020-06-16] MEDS ORDERED: Enoxaparin 40 MG/0.4 ML Syringe SUBCUT SCH (16:00)
[2020-06-16] MEDS: Meropenem 500 MG in Sodium Chloride 0.9% 50 ML IV SCH (16:12)
[2020-06-16] MEDS: Acetaminophen 325 MG Tab PO SCH ×2 (16:12→21:34)
[2020-06-16] MEDS: Metoprolol Tartrate 25 MG Tab PO SCH (20:15)
[2020-06-16] MEDS: Psyllium Husk Powder Sugar Free 5.85 GM Packet PO SCH (20:16)
[2020-06-16] MEDS: levETIRAcetam 250 MG Tab PO SCH (20:16)
[2020-06-16] MEDS: Polyethylene Glycol 3350 Powder 17 GM Packet PO SCH (20:16)
[2020-06-16] MEDS ORDERED: Terazosin 5 MG Cap PO SCH (21:00)
[2020-06-16] MEDS: Calcium Polycarbophil 625 MG Tab PO SCH (22:06)
[2020-06-17] MEDS: Meropenem 500 MG in Sodium Chloride 0.9% 50 ML IV SCH (00:07)
[2020-06-17] MEDS: Dextrose 5%-Lactated Ringers 1,000 ML IV SCH (00:09)
[2020-06-17] MEDS: Acetaminophen 325 MG Tab PO SCH (04:35)
[2020-06-17 07:19] VITALS: BP 123/66
[2020-06-17] MEDS ORDERED: Levothyroxine 50 MCG Tab PO SCH (07:30)
[2020-06-17] MEDS: Metoprolol Tartrate 25 MG Tab PO SCH (08:10)
[2020-06-17] MEDS: levETIRAcetam 250 MG Tab PO SCH (08:12)
[2020-06-17] MEDS: Polyethylene Glycol 3350 Powder 17 GM Packet PO SCH (08:13)
[2020-06-17] MEDS: Psyllium Husk Powder Sugar Free 5.85 GM Packet PO SCH (08:15)
[2020-06-17 08:25] VITALS: PULSE 72
[2020-06-17] MEDS ORDERED: Magnesium Hydroxide 400 MG/5 ML Susp 30 ML Cup PO ONE (08:30)
[2020-06-17] MEDS: Calcium Polycarbophil 625 MG Tab PO SCH (08:59)
[2020-06-17] MEDS ORDERED: Hypromellose 0.3% Ophth Soln 15 ML Bottle EYEBOTH SCH (09:00)
--- NOTE | 2020-06-20 12:09 | DISCH ---
FINAL DIAGNOSES: 1. Chronic anal fissure. 2. History of paroxysmal tachycardia. 3. History of epilepsy. 4. Status post suprapubic catheter placement. 5. Treated hypothyroidism. 6. History of prostate carcinoma. OPERATIVE PROCEDURE: Done on 06/16, anal fissurectomy with left lateral internal sphincterotomy. SUMMARY: This is an 84-year-old presenting with chronic anal fissure, treated with a course of diltiazem with lidocaine, which failed to respond, and at this point, presented with continued quite severe pain and underwent the above procedure on the date of admission. Postoperatively, no major problems were noted overnight. He does have a history of constipation and we will move up his anticonstipation medications to twice a day for now, and we will also add FiberCon 1 tablet b.i.d. to the regimen. Otherwise, he may need at this point only Tylenol for pain, and we will try to avoid narcotics to avoid anticonstipation effects. Otherwise, continue his present home medications plus Milk of Magnesia as needed for initiation of bowel movement. Follow up with [facility] on 06/27/2020. /[id number]
--- NOTE | 2020-06-25 08:14 | OR ---
DATE OF PROCEDURE: 06/16/2020 SURGEON: Neel Duff MD PREOPERATIVE DIAGNOSIS: Chronic anal fissure. POSTOPERATIVE DIAGNOSIS: Chronic anal fissure. OPERATIVE PROCEDURE: Anal fissurectomy with lateral internal sphincterotomy. ANESTHESIA: General. INDICATIONS FOR PROCEDURE: An 84-year-old male presenting recently with a painful anal fissure. He was treated over a month period with diltiazem/lidocaine topical treatment regimen, which has not resulted in significant improvement in his symptoms. At this point, he is fairly desperate in terms of the amount of pain and presents for anal fissurectomy and lateral internal sphincterotomy. Potential risks of the procedure including bleeding, infection, some possible fecal incontinence following the procedure were reviewed with the patient and he wishes to proceed. DETAILS OF PROCEDURE: The patient was taken to the operating room, and after general endotracheal anesthesia was induced, he was placed in a lithotomy position, and the perianal area prepped and draped. The initial examination confirmed a posterior-based anal fissure. This was then excised using electrocautery, and that mucosa then reapproximated with a 4-0 Vicryl stitch, and anesthetized with 0.5% Marcaine. With the retraction now focused on the left lateral aspect of the anal canal, the internal sphincter was palpated. Mucosa just inferior to this was then incised and the lower 2/3 of the anal sphincter was then divided with cautery. This appeared to result in significant loosening of the tension at the level of the internal sphincter. Mucosa over this was likewise approximated with 4-0 Vicryl stitch and area anesthetized with 0.5% Marcaine as well and the patient taken to the recovery room in satisfactory condition. There were no evident complications. Neel Duff MD /[id number]
== END 2020-06-17 09:45 | disposition home or self-care (01) ==
LOC: JP.SDS 08:00 → JP.MS 08:08 → UNDOADMIN 08:08 → JP.SDS 06-17 09:45 → UNDODISIN 06-17 09:45
PROVIDERS: ATTEND Surgery
DX: K60.1 Chronic anal fissure (principal); E03.9 Hypothyroidism, unspecified; E78.5 Hyperlipidemia, unspecified; G89.29 Other chronic pain; M54.5 Low back pain; N52.9 Male erectile dysfunction, unspecified; G40.909 Epilepsy, unspecified, not intractable, without status epilepticus; I48.91 Unspecified atrial fibrillation; Z01.812 Encounter for preprocedural laboratory examination; Z20.828 Contact with and (suspected) exposure to other viral communicable diseases; Z85.46 Personal history of malignant neoplasm of prostate; Z95.0 Presence of cardiac pacemaker; Z96.0 Presence of urogenital implants; Z79.01 Long term (current) use of anticoagulants; Z79.890 Hormone replacement therapy; Z79.4 Long term (current) use of insulin; Z79.899 Other long term (current) drug therapy
CPT/HCPCS: 36415; 46200; 85610; 88304; A9270; J1100; J1650; J2001; J2185; J2405; J2704; J2710; J3010; J3490; J7050; J7121; U0002

== ENCOUNTER 2020-08-04 13:59 | Emergency (ER) | payer MEDICARE, BC ==
[2020-08-04] MEDS ORDERED: fentaNYL 100 MCG/2 ML SDV IVPUSH ONE (14:26)
--- NOTE | 2020-08-04 14:29 | EDM.PDOC ---
ED HPI GENERAL MEDICAL PROBLEM - General Chief Complaint: Gastrointestinal Problem Stated Complaint: WEAK Time Seen by Provider: 08/04/20 14:19 Source of Information: Reports: Patient, Family, RN Notes Reviewed History Limitations: Reports: No Limitations - History of Present Illness INITIAL COMMENTS - FREE TEXT/NARRATIVE: 84-year-old gentleman presents emergency department with a complaint of rectal pain, he recently had anal fissure repair done end May 2020 since that time he states he is not been doing well and over the last week he has had increase in his pain rectal area as well as generalized weakness to the point where he has difficulty getting out of a chair Rectal Pain Score (Numeric/FACES): 6 - Related Data Allergies Allergy/AdvReac Type Severity Reaction Status Date / Time No Known Allergies Allergy Verified 08/04/20 14:12 Home Meds: Home Meds Multivitamin [Multi-Vitamin Daily] 1 each PO DAILY 12/24/16 [History] Terazosin HCl [Terazosin] 5 mg PO BID 12/24/16 [History] levETIRAcetam [Levetiracetam] 500 mg PO BID 12/24/16 [History] Levothyroxine 50 mcg PO DAILY 01/25/18 [History] Metoprolol Tartrate 37.5 mg PO BID 01/25/18 [History] Warfarin [Coumadin] 5 mg PO ASDIRECTED 01/29/20 [History] Docusate Sodium/Sennosides [Senokot-S] 2 each PO BID #0 06/17/20 [Rx] Psyllium with Sucrose [Metamucil] 1 each PO BID #0 06/17/20 [Rx] Acetaminophen [Tylenol] 500 mg PO Q4H PRN 08/04/20 [History] Hydrocodone/Acetaminophen [Hydrocodon-Acetaminophen 5-325] 1 tab PO Q4H 08/04/20 [History] polyethylene glycoL 3350 [MiraLAX] 34 gm PO DAILY 08/04/20 [History] Past Medical History HEENT History: Reports: Cataract, Hard of Hearing Other HEENT History: hearing aids Cardiovascular History: Reports: Afib Other Cardiovascular History: tachycardia, heart monitor in place Respiratory History: Reports: Other (See Below) Other Respiratory History: A 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 chronic cough Gastrointestinal History: Reports: Chronic Constipation Genitourinary History: Reports: BPH, Prostate Disorder, Other (See Below) Other Genitourinary History: radiation seeds in prostate; suprapubic February 2020 Musculoskeletal History: Reports: Arthritis, Fracture Neurological History: Reports: Seizure Endocrine/Metabolic History: Reports: Hypothyroidism Hematologic History: Reports: Anticoagulation Therapy Oncologic (Cancer) History: Reports: Prostate - Infectious Disease History Infectious Disease History: Reports: Chicken Pox, Mumps - Past Surgical History Head Surgeries/Procedures: Reports: None HEENT Surgical History: Reports: Cataract Surgery Other HEENT Surgeries/Procedures: Left eye Cardiovascular Surgical History: Reports: AICD Respiratory Surgical History: Reports: None GI Surgical History: Reports: Other (See Below) Other GI Surgeries/Procedures: fissurectomy with left lateral internal sphincterotomy 06/16/2020 Male Surgical History: Reports: Suprapubic Catheter Placement Endocrine Surgical History: Reports: None Neurological Surgical History: Reports: None Musculoskeletal Surgical History: Reports: Arthroscopic Knee Oncologic Surgical History: Reports: None Dermatological Surgical History: Reports: None Social & Family History - Family History Family Medical History: No Pertinent Family History Cardiac: Reports: Heart Failure, Other (See Below) - Tobacco Use Tobacco Use Status *Q: Never Tobacco User Second Hand Smoke Exposure: No - Caffeine Use Caffeine Use: Reports: Coffee - Recreational Drug Use Recreational Drug Use: No ED ROS GENERAL - Review of Systems Review Of Systems: See Below Constitutional: Reports: Weakness, Fatigue. Denies: Fever, Chills HEENT: Reports: No Symptoms Respiratory: Reports: No Symptoms Cardiovascular: Reports: No Symptoms GI/Abdominal: Reports: Abdominal Pain (Pelvic area rectal pain). Denies: Nausea, Vomiting : Reports: Other (Suprapubic catheter) ED EXAM, GI/ABD - Physical Exam Exam: See Below Exam Limited By: No Limitations General Appearance: Alert, Mild Distress Respiratory/Chest: No Respiratory Distress, Lungs Clear, Normal Breath Sounds, No Accessory Muscle Use, Chest Non-Tender Cardiovascular: Regular Rate, Rhythm, No Murmur GI/Abdominal Exam: Soft, Non-Tender (Male) Exam: No Hernia, Normal Inspection. No: Circumcised, Scrotum T enderness (L), Scrotum Tenderness (R), Suprapubic Fullness, Testicular Mass, Testicular Tenderness (L), Testicular Tenderness (R) Rectal (Males) Exam: Normal Exam, Normal Rectal Tone. No: Rectal Fissure Course - Vital Signs Last Recorded V/S: Last Vital Signs Temp 98.3 F 08/04/20 14:05 Pulse 64 08/04/20 15:00 Resp 18 08/04/20 14:05 BP 128/78 08/04/20 15:00 Pulse Ox 95 08/04/20 15:00 - Orders/Labs/Meds Orders: Active Orders 24 hr Category Date Time Status Peripheral IV Care [RC] . DIRECTED Care 08/04/20 14:26 Active CORONAVIRUS COVID-19, FRANNY Stat Lab 08/04/20 16:51 Ordered CULTURE BLOOD [BC] Urgent Lab 08/04/20 16:49 Ordered CULTURE BLOOD [BC] Urgent Lab 08/04/20 16:49 Ordered CULTURE URINE [RM] Urgent Lab 08/04/20 16:52 Ordered INR,PT,PROTHROMBIN TIME [COAG] Urgent Lab 08/04/20 16:51 Ordered Iopamidol [Isovue-300 (61%)] Med 08/04/20 15:47 Active 150 ml IV . DIRECTED PRN Piperacillin/Tazobactam [Zosyn] 3.375 gm Med 08/04/20 17:00 Ordered Sodium Chloride 0.9% [Normal Saline] 50 ml IV ONETIME Sodium Chloride 0.9% [Normal Saline] 1,000 ml Med 08/04/20 14:30 Active IV ASDIRECTED Sodium Chloride 0.9% [Normal Saline] 77 ml Med 08/04/20 16:00 Active IV ASDIRECTED Sodium Chloride 0.9% [Saline Flush] Med 08/04/20 14:25 Active 10 ml FLUSH ASDIRECTED PRN Blood Culture x2 Reflex Set [OM.PC] Urgent Oth 08/04/20 16:49 Ordered Peripheral IV Insertion Adult [OM.PC] Urgent Oth 08/04/20 14:25 Ordered Medication Orders Sodium Chloride (Normal Saline) 1,000 mls @ 500 mls/hr IV ASDIRECTED DANIELA Last Admin: 08/04/20 14:36 Dose: 500 mls/hr Documented by: DEMARIO Sodium Chloride (Normal Saline) 77 mls @ 3 mls/sec IV ASDIRECTED DANIELA Last Admin: 08/04/20 15:58 Dose: 3 mls/sec Documented by: NGA Piperacillin Sod/Tazobactam (Sod 3.375 gm/ Sodium Chloride) 50 mls @ 100 mls/hr IV ONETIME DANIELA Iopamidol (Isovue-300 (61%)) 150 ml IV . DIRECTED PRN PRN Reason: RADIOLOGY EXAM Stop: 08/05/20 15:48 Last Admin: 08/04/20 15:58 Dose: 150 ml Documented by: NGA Sodium Chloride (Saline Flush) 10 ml FLUSH ASDIRECTED PRN PRN Reason: Keep Vein Open Last Admin: 08/04/20 15:58 Dose: 10 ml Documented by: Admin: 08/04/20 14:35 Dose: 10 ml Documented by: DEMARIO Labs: Laboratory Tests 08/04/20 08/04/20 08/04/20 Range/Units 14:41 14:41 14:41 WBC 18.7 H (4.5-11.0) K/uL RBC 3.69 L (4.30-5.90) M/uL Hgb 11.3 L D (12.0-15.0) g/dL Hct 36.3 L (40.0-54.0) % MCV 98 (80-98) fL MCH 31 (27-31) pg MCHC 31 L (32-36) % Plt Count 484 H (150-400) K/uL Neut % (Auto) 77 H (36-66) % Lymph % (Auto) 12 L (24-44) % Walker % (Auto) 9 H (2-6) % Eos % (Auto) 2 (2-4) % Baso % (Auto) 0 (0-1) % Sodium 139 L (140-148) mmol/L Potassium 4.2 (3.6-5.2) mmol/L Chloride 104 (100-108) mmol/L Carbon Dioxide 27 (21-32) mmol/L Anion Gap 12.2 (5.0-14.0) mmol/L BUN 16 (7-18) mg/dL Creatinine 0.8 (0.8-1.3) mg/dL Est Cr Clr Drug Dosing 67.69 mL/min Estimated GFR (MDRD) > 60 (>60) Glucose 94 (74-106) mg/dL Lactic Acid 1.4 (0.4-2.0) mmol/L Calcium 9.1 (8.5-10.1) mg/dL Total Bilirubin 0.2 (0.2-1.0) mg/dL AST 12 L (15-37) U/L ALT 15 (12-78) U/L Alkaline Phosphatase 115 (46-116) U/L Total Protein 7.0 (6.4-8.2) g/dL Albumin 2.9 L (3.4-5.0) g/dL Globulin 4.1 H (2.3-3.5) g/dL Albumin/Globulin Ratio 0.7 L (1.2-2.2) Lipase 74 (73-393) U/L Urine Color (YELLOW) Urine Appearance (CLEAR) Urine pH (5.0-8.0) Ur Specific Heppner (1.008-1.030) Urine Protein (NEGATIVE) mg/dL Urine Glucose (UA) (NEGATIVE) mg/dL Urine Ketones (NEGATIVE) mg/dL Urine Occult Blood (NEGATIVE) Urine Nitrite (NEGATIVE) Urine Bilirubin (NEGATIVE) Urine Urobilinogen (0.2-1.0) EU/dL Ur Leukocyte Esterase (NEGATIVE) Urine RBC (0-5) Urine WBC (0-5) Ur Epithelial Cells Amorphous Sediment Urine Bacteria Urine Mucus 08/04/20 Range/Units 15:43 WBC (4.5-11.0) K/uL RBC (4.30-5.90) M/uL Hgb (12.0-15.0) g/dL Hct (40.0-54.0) % MCV (80-98) fL MCH (27-31) pg MCHC (32-36) % Plt Count (150-400) K/uL Neut % (Auto) (36-66) % Lymph % (Auto) (24-44) % Walker % (Auto) (2-6) % Eos % (Auto) (2-4) % Baso % (Auto) (0-1) % Sodium (140-148) mmol/L Potassium (3.6-5.2) mmol/L Chloride (100-108) mmol/L Carbon Dioxide (21-32) mmol/L Anion Gap (5.0-14.0) mmol/L BUN (7-18) mg/dL Creatinine (0.8-1.3) mg/dL Est Cr Clr Drug Dosing mL/min Estimated GFR (MDRD) (>60) Glucose (74-106) mg/dL Lactic Acid (0.4-2.0) mmol/L Calcium (8.5-10.1) mg/dL Total Bilirubin (0.2-1.0) mg/dL AST (15-37) U/L ALT (12-78) U/L Alkaline Phosphatase (46-116) U/L Total Protein (6.4-8.2) g/dL Albumin (3.4-5.0) g/dL Globulin (2.3-3.5) g/dL Albumin/Globulin Ratio (1.2-2.2) Lipase (73-393) U/L Urine Color Yellow (YELLOW) Urine Appearance Slightly cloudy A (CLEAR) Urine pH 7.0 (5.0-8.0) Ur Specific Heppner 1.020 (1.008-1.030) Urine Protein 30 H (NEGATIVE) mg/dL Urine Glucose (UA) Negative (NEGATIVE) mg/dL Urine Ketones Negative (NEGATIVE) mg/dL Urine Occult Blood Negative (NEGATIVE) Urine Nitrite Positive H (NEGATIVE) Urine Bilirubin Negative (NEGATIVE) Urine Urobilinogen 0.2 (0.2-1.0) EU/dL Ur Leukocyte Esterase Trace H (NEGATIVE) Urine RBC 0-5 (0-5) Urine WBC 5-10 H (0-5) Ur Epithelial Cells Not seen Amorphous Sediment Not seen Urine Bacteria Moderate Urine Mucus Moderate Meds: Medications Generic Name Dose Route Start Last Admin Trade Name Freq PRN Reason Stop Dose Admin Sodium Chloride 1,000 mls @ 500 mls/hr 08/04/20 14:30 08/04/20 14:36 Normal Saline IV 500 mls/hr ASDIRECTED DANIELA Administration Sodium Chloride 77 mls @ 3 mls/sec 08/04/20 16:00 08/04/20 15:58 Normal Saline IV 3 mls/sec ASDIRECTED DANIELA Administration Piperacillin Sod/Tazobactam 50 mls @ 100 mls/hr 08/04/20 17:00 Sod 3.375 gm/ Sodium Chloride IV ONETIME DANIELA Iopamidol 150 ml 08/04/20 15:47 08/04/20 15:58 Isovue-300 (61%) IV 08/05/20 15:48 150 ml . DIRECTED PRN Administration RADIOLOGY EXAM Sodium Chloride 10 ml 08/04/20 14:25 08/04/20 15:58 Saline Flush FLUSH 10 ml ASDIRECTED PRN Administration Keep Vein Open Discontinued Medications Generic Name Dose Route Start Last Admin Trade Name Yoana PRN Reason Stop Dose Admin Fentanyl 50 mcg 08/04/20 14:26 08/04/20 14:35 Sublimaze IVPUSH 08/04/20 14:27 50 mcg ONETIME ONE Administration Hydromorphone HCl 1 mg 08/04/20 16:42 Dilaudid IVPUSH 08/04/20 16:43 ONETIME ONE Sodium Chloride 10 ml 08/04/20 15:47 Normal Saline FLUSH 08/04/20 15:48 ONETIME ONE Departure - Departure Time of Disposition: 16:54 Disposition: DC/Tfer to Acute Hospital 02 Condition: Fair Clinical Impression: Pelvic mass - Discharge Information Referrals: Neel Duff MD [Primary Care Provider] - Forms: ED Department Discharge Sepsis Event Note (ED) - Evaluation Sepsis Screening Result: No Definite Risk - Focused Exam Vital Signs: Vital Signs Temp Pulse Resp BP Pulse Ox 08/04/20 15:00 64 128/78 95 08/04/20 14:05 98.3 F 68 18 131/73 97 08/04/20 14:01 98.3 F 68 18 131/73 97 - My Orders Last 24 Hours: My Active Orders 08/04/20 14:25 Sodium Chloride 0.9% [Saline Flush] 10 ml FLUSH ASDIRECTED PRN Peripheral IV Insertion Adult [OM.PC] Urgent 08/04/20 14:26 Peripheral IV Care [RC] . DIRECTED 08/04/20 14:30 Sodium Chloride 0.9% [Normal Saline] 1,000 ml IV ASDIRECTED 08/04/20 15:47 Iopamidol [Isovue-300 (61%)] 150 ml IV . DIRECTED PRN 08/04/20 16:00 Sodium Chloride 0.9% [Normal Saline] 77 ml IV ASDIRECTED 08/04/20 16:49 CULTURE BLOOD [BC] Urgent CULTURE BLOOD [BC] Urgent Blood Culture x2 Reflex Set [OM.PC] Urgent 08/04/20 16:51 CORONAVIRUS COVID-19, FRANNY Stat INR,PT,PROTHROMBIN TIME [COAG] Urgent 08/04/20 16:52 CULTURE URINE [RM] Urgent 08/04/20 17:00 Piperacillin/Tazobactam [Zosyn] 3.375 gm Sodium Chloride 0.9% [Normal Saline] 50 ml IV ONETIME - Assessment/Plan Last 24 Hours: My Active Orders 08/04/20 14:25 Sodium Chloride 0.9% [Saline Flush] 10 ml FLUSH ASDIRECTED PRN Peripheral IV Insertion Adult [OM.PC] Urgent 08/04/20 14:26 Peripheral IV Care [RC] . DIRECTED 08/04/20 14:30 Sodium Chloride 0.9% [Normal Saline] 1,000 ml IV ASDIRECTED 08/04/20 15:47 Iopamidol [Isovue-300 (61%)] 150 ml IV . DIRECTED PRN 08/04/20 16:00 Sodium Chloride 0.9% [Normal Saline] 77 ml IV ASDIRECTED 08/04/20 16:49 CULTURE BLOOD [BC] Urgent CULTURE BLOOD [BC] Urgent Blood Culture x2 Reflex Set [OM.PC] Urgent 08/04/20 16:51 CORONAVIRUS COVID-19, FRANNY Stat INR,PT,PROTHROMBIN TIME [COAG] Urgent 08/04/20 16:52 CULTURE URINE [RM] Urgent 08/04/20 17:00 Piperacillin/Tazobactam [Zosyn] 3.375 gm Sodium Chloride 0.9% [Normal Saline] 50 ml IV ONETIME Plan: Assessment Acuity = acute Site and laterality = pelvic mass Etiology = unknown Manifestations = pain Location of injury = Home Lab values = WBC elevated 18.7 consistent leukocytosis lactic acid normal 1.4 CMP unremarkable INR is pending urinalysis positive for nitrates 5-10 WBCs consistent with pyuria urine cultures pending blood cultures are also pending CT scan describes a 6.6 x 4.4 cm mass undetermined etiology pelvic region Plan Call discussed case Dr. Kaminski emergency room physician [facility] can accept the patient at [id number], antibiotics of Zosyn have been initiated he will be transported via EMS ground This note was dictated using [employer] voice recognition software please call with any questions on syntax or grammar.
[2020-08-04] MEDS: Sodium Chloride 0.9% 10 ML Syringe FLUSH PRN ×2 (14:35→15:58)
[2020-08-04] MEDS: Sodium Chloride 0.9% 1,000 ML IV SCH ×2 (14:36→17:05)
[2020-08-04] MEDS ORDERED: Iopamidol 612 MG/ML 150 ML Bottle IV PRN (15:47)
[2020-08-04] MEDS ORDERED: Sodium Chloride 0.9% 10 ML SDV FLUSH ONE (15:47)
--- NOTE | 2020-08-04 16:18 | CRLCT ---
Indication: Buttock pain Technique: Contrast enhanced CT abdomen pelvis 115 mL Isovue-300 Comparison: No comparison FINDINGS: Heart size is normal. Subpleural ground-glass opacities with reticulation may reflect fibrotic changes. Right lower lobe granuloma. Splenic granulomas. Low-attenuation noted falciform ligament probably reflects focal fatty infiltration. Liver gallbladder pancreas is unremarkable splenic granuloma. Small hiatal hernia. Adrenal glands are unremarkable No abdominal aortic aneurysm. Symmetric enhancement of both kidneys. No hydronephrosis. Subcentimeter probable cyst left kidney. Normal appendix. Suprapubic bladder catheter air in the bladder which is decompressed. Brachytherapy prostatic seeds. Small fat containing inguinal hernias. Irregular rim enhancing low-density mass measuring 6.6 x 4.1 centimeters seen at the base of the penis which contacts the base of the prostate gland also abut the anterior rectosigmoid colon. No large pelvic adenopathy no retroperitoneal adenopathy. No suspicious bony lesions. Impression: 1. 6.6 x 4.1 cm rim enhancing low density mass centered at the base of the penis which contacts the inferior aspect of prostate gland and abuts the anterior rectal sigmoid colon. Findings favored to represent necrotic mass/malignancy from prostate cancer. If the patient has fever and white count could consider abscess. Please note that all CT scans at this facility use dose modulation, iterative reconstruction, and/or weight-based dosing when appropriate to reduce radiation dose to as low as reasonably achievable. Dictated by Dasha Rowland MD @ Aug 04 2020 3:59PM Signed by Dr. Dasha Rowland @ Aug 04 2020 4:17PM
[2020-08-04] MEDS ORDERED: HYDROmorphone 1 MG/ML Syringe IVPUSH ONE ×2 (16:42→18:04)
[2020-08-04] MEDS ORDERED: Piperacillin/Tazobactam 3.375 GM in Sodium Chloride 0.9% 50 ML IV SCH (17:00)
[2020-08-04 17:10] VITALS: BP 178/78; PULSE 59
== END 2020-08-04 18:12 ==
LOC: JP.ED 13:59
DX: R19.00 Intra-abdominal and pelvic swelling, mass and lump, unspecified site (principal); I48.91 Unspecified atrial fibrillation; E03.9 Hypothyroidism, unspecified; R56.9 Unspecified convulsions; Z79.899 Other long term (current) drug therapy
CPT/HCPCS: 36415; 74177; 80053; 81001; 83605; 83690; 85025; 85610; 87040; 87086; 87088; 87186; 96365; 96375; 96376; 99284-25; 99285; J1170; J2543; J3010; J7030; J7050; Q9967; U0002